=== PATIENT | female | born 1955 | race Two or more races ===

== ENCOUNTER → 2020-01-17 08:15 | Outpatient (BNVA) | payer MEDICARE, SELFPAY | PROVIDERS: Family Provider Nurse Practitioner; Visit Provider Nurse Practitioner | DX: E11.22 Type 2 diabetes mellitus with diabetic chronic kidney disease (principal); N18.9 Chronic kidney disease, unspecified; R82.998 Other abnormal findings in urine | CPT/HCPCS: 80053; 80061; 83036 ==

== ENCOUNTER → 2020-01-21 08:46 | Outpatient (BNVA) | payer MEDICARE, SELFPAY | PROVIDERS: Family Provider Nurse Practitioner; Visit Provider Nurse Practitioner | DX: E11.22 Type 2 diabetes mellitus with diabetic chronic kidney disease (principal); R39.11 Hesitancy of micturition; I10 Essential (primary) hypertension; M51.36 Other intervertebral disc degeneration, lumbar region; E78.5 Hyperlipidemia, unspecified; R82.998 Other abnormal findings in urine | CPT/HCPCS: 81003; 87086 ==

== ENCOUNTER → 2020-05-01 08:13 | Outpatient (BNVA) | payer MEDICARE, SELFPAY | PROVIDERS: Family Provider Nurse Practitioner; Visit Provider Nurse Practitioner | DX: E11.22 Type 2 diabetes mellitus with diabetic chronic kidney disease (principal); N18.9 Chronic kidney disease, unspecified; I12.9 Hypertensive chronic kidney disease with stage 1 through stage 4 chronic kidney disease, or unspecified chronic kidney disease; E78.5 Hyperlipidemia, unspecified | CPT/HCPCS: 80053; 80061; 83036 ==

== ENCOUNTER → 2020-08-06 08:09 | Outpatient (BNVA) | payer MEDICARE, SELFPAY | PROVIDERS: Family Provider Nurse Practitioner; Visit Provider Nurse Practitioner | DX: R53.83 Other fatigue (principal); E55.9 Vitamin D deficiency, unspecified; E11.22 Type 2 diabetes mellitus with diabetic chronic kidney disease; E78.5 Hyperlipidemia, unspecified; I12.9 Hypertensive chronic kidney disease with stage 1 through stage 4 chronic kidney disease, or unspecified chronic kidney disease; N18.9 Chronic kidney disease, unspecified | CPT/HCPCS: 80053; 80061; 83036 ==

== ENCOUNTER → 2020-08-12 09:40 | Outpatient (BNVA) | payer MEDICARE, SELFPAY | PROVIDERS: Family Provider Nurse Practitioner; Visit Provider Nurse Practitioner | DX: R53.83 Other fatigue (principal); E55.9 Vitamin D deficiency, unspecified | CPT/HCPCS: 82306; 82607; 84443; 85025 ==

== ENCOUNTER → 2020-08-31 10:27 | Outpatient (BNVA) | payer MEDICARE, SELFPAY | PROVIDERS: Family Provider Nurse Practitioner; Visit Provider Nurse Practitioner Family | DX: Z11.59 Encounter for screening for other viral diseases (principal) | CPT/HCPCS: 87635 ==

== ENCOUNTER 2020-09-25 06:54 | Outpatient (CLI) | payer MEDICARE, BC, SELFPAY ==
--- NOTE | 2020-09-25 07:15 | USCV_ITS ---
Kasey Vidal Age: 64 Gender: F : 1955 Exam Date: 09/25/2020 07:04 Ordering Phys: Liberty Patricia Technologist: Lesa Bautista [place] [facility] [place]: BRUIT ON RT Risk Factors: Unknown Previous Vascular Surgery: None Right Brachial BP: / Left Brachial BP: / Right Left Velocity (cm/s) Spectral Plaque Velocity (cm/s) Spectral Plaque Syst/Diast Broadening Syst/Diast Broadening 117.45/23.15 Prox CCA 133.30/ 55.90 108.10/32.00 Mid CCA 105.20/ 20.40 79.40/ 18.70 Distal CCA 106.90/ 27.20 Hetro 69.50/ 15.40 Prox ICA 49.00 / 12.00 Hetro 67.60/ 25.00 Mid ICA 60.50 / 18.80 60.30/ 16.60 Distal ICA 62.50 / 19.00 130.10 ECA 130.70 0.64 ICA/CCA 0.59 Antegrade Vertebral Antegrade 40.90/ 12.40 cm/s 22.80/ 5.20 cm/s Tri Subclavian Tri 184.9 140.6 0 0 FINDINGS Comparison: none available. No significant elevation of systolic or diastolic velocities. Waveforms are normal. Mixture of calcified and noncalcified plaque in the bifurcations. Bilateral antegrade vertebral arteries. CONCLUSIONS Bilateral ICA stenosis less than 50%. Mild carotid atherosclerosis. Dr. Abbi Oneil DO (Electronically Signed) Final Date: 25 September 2020 09:46 S
== END 2020-09-25 06:55 | disposition home or self-care (01) ==
LOC: US 06:55
PROVIDERS: PCP Nurse Practitioner; Visit Provider Nurse Practitioner
DX: R09.89 Other specified symptoms and signs involving the circulatory and respiratory systems (principal); I65.23 Occlusion and stenosis of bilateral carotid arteries
CPT/HCPCS: 93880

== ENCOUNTER → 2021-01-29 08:20 | Outpatient (BNVA) | payer MEDICARE, BC, SELFPAY | PROVIDERS: PCP Family Medicine; Visit Provider Family Medicine | DX: I10 Essential (primary) hypertension (principal); E78.5 Hyperlipidemia, unspecified; E11.9 Type 2 diabetes mellitus without complications; M79.645 Pain in left finger(s); R00.2 Palpitations | CPT/HCPCS: 80053; 80061; 81015; 82043; 85025 ==

== ENCOUNTER → 2021-02-02 07:43 | Outpatient (BNVA) | payer MEDICARE, BC, SELFPAY | PROVIDERS: PCP Family Medicine; Visit Provider Family Medicine | DX: E11.9 Type 2 diabetes mellitus without complications (principal); I10 Essential (primary) hypertension | CPT/HCPCS: 83036; 85025 ==

== ENCOUNTER 2021-02-06 15:01 | Outpatient (CLI) | payer MEDICARE, BC, SELFPAY ==
--- NOTE | 2021-02-06 15:45 | XR_ITS ---
WS: [id number] LEFT HAND: 3 VIEW(S) TECHNIQUE: PA, oblique and lateral. HISTORY: left thumb pain COMPARISON: None available. No acute fracture or dislocation. Mild osteoarthritis at the first CMC joint. Very minimal subluxation at the first metacarpal phalange al joint. No acute fractures. There is a healed fracture involving the radial metaphysis. Prior avuls ion fracture from the ulnar styloid. Mild diffuse interphalangeal joint space narrowing. No erosions. XR/XR hand LT min 3V* 05001 IMPRESSION: 1. Mild osteoarthritis throughout the hand and including the first CMC joint. 2. Osteopenia. 3. Healed fracture involving the distal radius.
== END 2021-02-06 15:02 | disposition home or self-care (01) ==
LOC: RADWPI 15:03
PROVIDERS: PCP Family Medicine; Visit Provider Family Medicine
DX: M19.042 Primary osteoarthritis, left hand (principal); M85.842 Other specified disorders of bone density and structure, left hand
CPT/HCPCS: 73130

== ENCOUNTER 2021-03-12 10:14 | Outpatient (CLI) | payer MEDICARE, BC, SELFPAY ==
[2021-03-12 10:45] LABS: Basophils % 0.9 %; Eosinophils # 0.1 10^3/uL (0.0-0.8); Hemoglobin 14.3 g/dL (11.5-15.3); Lymphocytes # 1.3 10^3/uL (0.8-4.8); Lymphocytes % 27.5 %; Mean Corpuscular HGB Conc 32.5 g/dL (30.0-36.0); Mean Corpuscular Hemoglobin 32.9 pg (28.0-34.0); Mean Corpuscular Volume 101.4 fL (81-99); Mean Platelet Volume 10.7 fL (7.4-10.4); Monocytes # 0.5 10^3/uL (0.2-0.9); Monocytes % 10.6 %; Neutrophils # 2.65 10^3/uL (1.8-7.7); Neutrophils % 57.6 %; Nucleated Red Blood Cells % 0 %; Platelet Count 86 10^3/cmm (130-400); Red Blood Count 4.34 10^6/uL (4.1-5.3); Red Cell Distribution Width 12.8 % (12.1-15.1); White Blood Count 4.6 10^3/uL (4.0-10.0)
--- NOTE | 2021-03-12 14:30 | ONC CON_ITS ---
Dr. Woods New Patient Note Patient: Kasey Vidal Unit #: [id number]: 1955 Dicatated By: Josh Woods M.D.Date of Visit: Mar 12, 2021 Onc MED New Patient/Consult Referring Physician: Dell Rodríguez N.P. History of Present Illness: Ms. Kasey Vidal, is a 65-year-old female with a history of mild progressive thrombocytopenia since 2016, as per patient initially her platelet count was around 120,000 and then dropped down 100,000 range and recently on February 02, 2021 her CBC showed platelet count 77,000 with a normal white blood count at 4.6, hemoglobin 13.5 hematocrit 42.4., Patient was referred to hematology clinic for evaluation for isolated mildly progressive thrombocytopenia. Patient denies any history of nosebleed or gum bleed, melena or hematochezia, dysuria or hematuria, or petechia or ecchymosis Patient denies any history of night sweats, recurrent fever, weight loss, peripheral lymphadenopathy or abdominal fullness., As per patient she was diagnosed with Covid infection in August 2020 but her symptoms were mild, did not require hospitalization. As far as past medical history is concerned, patient has history of hypertension, diabetes, peripheral neuropathy, sleep apnea, on CPAP, medication, she is on Metformin for many years, lisinopril for more than 5 years Trulicity was started about 2 years ago, duloxetine was started a year ago, prior to that she was on gabapentin for neuropathy. Patient denies alcohol use or smoking, Past Medical History: Ms. Vidal's medical history consists of anxiety, covid 19, depression, diabetes type II, hyperlipidemia, Insomnia, and obstructive sleep apnea. Past Surgical History: Ms. Vidal's surgical/procedural history consists of lumbar surgery in 2014 and hysterectomy in 1998 - one ovary removed. 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 Ms. Vidal has never smoked. She has no history of drinking. Family History: Ms. Vidal's mother at age 79: Heart disease at age 78. Ms. Vidal's father at age 80: Heart attack at age 80. Ms. Vidal has 2 brothers: 1 alive, 1 . Ms. Vidal's first brother's medical history includes renal disease, hypertension, and heart disease. Another brother's hepatitis c, and motor vehicle accident at age 44. She has 1 sister who is alive: medical history includes diabetes and Heart disease. She has 2 sons: 2 alive. Ms. Vidal's first son's medical history includes Paralysis, Bipolar, and traumatic brain injury. Review Of Symptoms: Review of Systems is not available for this patient. Vital Signs: Performed on Mar 12, 2021 11:10: 3, 0, 33.58 (HIGH), 1.91 sq.m, 63.50 in (HIGH), 97 %, 87 /min, 20 /min, 131/68 mm(hg), 98.5 F, and 192.6 lbs (HIGH). Performance Status: 0 - Fully active, able to carry on all predisease activities without restrictions. (ECOG) Physical Examination: ENMT - No mouth sores, no thrush, no jaundice, Respiratory - Lungs are clear to auscultation, Cardiovascular - Regular rate and rhythm of heart, Abdomen - Soft, bowel sounds present, Extremities - No edema or rash, no peripheral lymphadenopathy. Lab/Imaging: Most recent lab results are not available for this patient. Impression: Isolated progressive mild/moderate thrombocytopenia etiology unclear could be multifactorial including drug-induced e.g. Trulicity 25% incidence of thrombocytopenia reported within first 2 years of use, CHRIS inhibitor, duloxetine can cause but uncommon. Or low-grade ITP or underlying myelodysplasia but less likely. Diabetes mellitus Hypertension DJD^ Sleep apnea on CPAP machine] Plan: Discussed with patient regarding her labs white blood count 4.6 hemoglobin 14.3 hematocrit 44 platelets 86,000 with a normal differential Clinically, patient doing well with no signs symptom suggestive of gross bleeding, her follow-up CBC shows hemoglobin in normal range, white blood count also normal range but persistent but stable isolated thrombocytopenia, etiology could be multifactorial including but not limited to drug-induced, especially Trulicity which was started about 2 years ago and as per patient her platelet count has been going down in the last couple of years, other possibility could be other drugs like lisinopril duloxetine, but less likely or she may have underlying low-grade ITP moreover patient was exposed to coronavirus although she had mild symptom, may have developed low-grade ITP. Other possibility could be platelet clumping due to EDTA in the sample collecting tube. Or splenomegaly We will review peripheral blood smear to rule out clumping or other abnormalities. And also consider abdominal sonogram to rule out splenomegaly and patient return to clinic in 2 weeks with CBC if she has persistent or progressive thrombocytopenia and above-mentioned work-up shows no abnormality, we will consider ruling out drug-induced thrombocytopenia by holding each drug separately and will start with Trulicity. And if her thrombocytopenia persist or progressed, will consider bone marrow evaluation. Signed By: Josh Woods M.D. <<Signature on File>>
[2021-03-12 21:07] LABS: LAB Peripheral Smear Sent for Review
== END 2021-03-12 10:15 | disposition home or self-care (01) ==
PROVIDERS: PCP Family Medicine; Visit Provider Internal Medicine Hematology & Oncology
DX: D69.6 Thrombocytopenia, unspecified (principal); E11.9 Type 2 diabetes mellitus without complications; I10 Essential (primary) hypertension; M19.90 Unspecified osteoarthritis, unspecified site; G47.33 Obstructive sleep apnea (adult) (pediatric); Z79.899 Other long term (current) drug therapy
CPT/HCPCS: 36415; 80500; 85025; 99204

== ENCOUNTER 2021-03-18 06:49 | Outpatient (CLI) | payer MEDICARE, BC, SELFPAY ==
--- NOTE | 2021-03-18 07:03 | US_ITS ---
WS: [id number] ULTRASOUND ABDOMEN LIMITED CLINICAL INFORMATION: THROMBOCYTOPENIA COMPARISON: None. FINDINGS: Spleen size upper limits of normal Craniocaudal length: 11.2 cm. Transverse length 5.7 cm AP dimension 5.2 cm US/US abdomen limited 36403 IMPRESSION: 1. Spleen measures 11.2 x 5.7 x 5.2 cm upper limits of normal. 2. Incidental splenic granulomas.
== END 2021-03-18 06:50 | disposition home or self-care (01) ==
LOC: US 06:50
PROVIDERS: PCP Family Medicine; Visit Provider Internal Medicine Hematology & Oncology
DX: D69.6 Thrombocytopenia, unspecified (principal); L92.8 Other granulomatous disorders of the skin and subcutaneous tissue
CPT/HCPCS: 76705

== ENCOUNTER 2021-04-02 11:44 | Outpatient (CLI) | payer MEDICARE, BC, SELFPAY ==
[2021-04-02 12:23] LABS: Basophils # 0.1 10^3/uL (0.0-0.1); Basophils % 1.5 %; Eosinophils # 0.1 10^3/uL (0.0-0.8); Eosinophils % 3.6 %; Hemoglobin 13.3 g/dL (11.5-15.3); Lymphocytes # 1.2 10^3/uL (0.8-4.8); Lymphocytes % 30.4 %; Mean Corpuscular HGB Conc 32.4 g/dL (30.0-36.0); Mean Corpuscular Hemoglobin 32.8 pg (28.0-34.0); Mean Corpuscular Volume 101.2 fL (81-99); Mean Platelet Volume 10.9 fL (7.4-10.4); Monocytes # 0.4 10^3/uL (0.2-0.9); Monocytes % 10.5 %; Neutrophils # 2.11 10^3/uL (1.8-7.7); Nucleated Red Blood Cells % 0 %; Platelet Count 75 10^3/cmm (130-400); Red Blood Count 4.05 10^6/uL (4.1-5.3); Red Cell Distribution Width 12.7 % (12.1-15.1); White Blood Count 3.9 10^3/uL (4.0-10.0)
--- NOTE | 2021-04-03 08:09 | ONC FU_ITS ---
Dr. Woods follow up note Patient: Kasey Vidal Unit #: [id number]: 1955 Dicatated By: Josh Woods M.D.Date of Visit:April 02, 2021 Onc Med Follow-up/Prog Note History of Present Illness: Ms. Kasey Vidal, is a 65-year-old female with a history of mild progressive thrombocytopenia since 2016, as per patient initially her platelet count was around 120,000 and then dropped down 100,000 range and recently on February 02, 2021 her CBC showed platelet count 77,000 with a normal white blood count at 4.6, hemoglobin 13.5 hematocrit 42.4., Patient was referred to hematology clinic for evaluation for isolated mildly progressive thrombocytopenia. Patient denies any history of nosebleed or gum bleed, melena or hematochezia, dysuria or hematuria, or petechia or ecchymosis Patient denies any history of night sweats, recurrent fever, weight loss, peripheral lymphadenopathy or abdominal fullness., As per patient she was diagnosed with Covid infection in August 2020 but her symptoms were mild, did not require hospitalization. As far as past medical history is concerned, patient has history of hypertension, diabetes, peripheral neuropathy, sleep apnea, on CPAP, medication, she is on Metformin for many years, lisinopril for more than 5 years Trulicity was started about 2 years ago, duloxetine was started a year ago, prior to that she was on gabapentin for neuropathy. Patient denies alcohol use or smoking, Abdominal sonogram done on March 18, 2021 shows spleen size measured 11.2 x 5.7 x 5.2 cm and incidental splenic granulomas. Came for follow-up, denies any specific complaints, no fever chills, no nausea or vomiting, no diarrhea constipation, no melena or hematochezia, no hemoptysis or hematemesis, no petechia or ecchymosis Medications: Atorvastatin Calcium 20 mg - Take 1 Tablet Oral at bedtime, Benadryl 25 mg - Take 2 Capsule Oral q 4 hours PRN, DULoxetine HCl 1 Caplet (of 30 mg) Capsule Delayed Release Particles Oral daily, Lisinopril 1 (10 mg) Tablet Oral daily, Melatonin 10 mg - Take 1 Capsule Oral at bedtime PRN, MetFORMIN HCl 500 mg - Take 2 Tablet Oral b.i.d., Tamsulosin HCl 1 Caplet (of 0.4 mg) Capsule Oral daily, traMADol HCl 1 Tablet (of 50 mg) Oral q 6 hours PRN, Trulicity 1 Each (of 1.5 mg/0.5mL) Subcutaneous q 7 days Allergies: Ibuprofen Review of Systems: Review of Systems is not available for this patient. Vital Signs: Performed on April 02, 2021 14:42 Height - 63.50 in Weight - 183.2 lbs (LOW) BSA - 1.87 sq.m BMI - 31.94 (HIGH) Temperature - 97.0 F (LOW) Pulse - 86 /min Respiration - 18 /min BP - 147/73 mm(hg) (HIGH) O2 Sat - 96 % Pain - 0 Fatigue - 4 Performance Status: 0 - Fully active, able to carry on all predisease activities without restrictions. (ECOG) Physical Examination: ENMT - No mouth sores, no thrush, no jaundice, no cervical or axillary lymphadenopathy, Respiratory - Lungs are clear to auscultation, Cardiovascular - Regular rate and rhythm of heart, Abdomen - Soft, bowel sounds present, no organomegaly, Extremities - No visible edema rash or cyanosis. Lab/Imaging: Most recent lab results are not available for this patient. Impression: Isolated progressive mild/moderate thrombocytopenia etiology unclear could be multifactorial including drug-induced e.g. Trulicity 25% incidence of thrombocytopenia reported within first 2 years of use, CHRIS inhibitor, duloxetine can cause but uncommon. Or low-grade ITP or underlying myelodysplasia but less likely. Abdominal sonogram done on March 18, 2021 shows no splenomegaly Diabetes mellitus Hypertension DJD Plan: Discussed with patient regarding her labs white blood count 3.9 compared to 4600 on March 12, 2021 hemoglobin 13.3 hematocrit 41 platelets 75,000 compared to 86,000 previously Clinically, patient doing well with no signs symptom suggestive of gross bleeding, her hemoglobin is stable, her platelet count shows persistent mild/moderate thrombocytopenia but stable repeat CBC shows mild leukopenia, her abdominal sonogram shows no splenomegaly and peripheral blood smear showed normal white blood cell count and morphology RBCs show slight macrocytosis and thrombocytopenia but no abnormal cells seen. At this point, her persistent moderate thrombocytopenia and fluctuating leukopenia could be due to medications like Trulicity or lisinopril. So we will hold Trulicity for 2 weeks and then she will return to clinic in 2 weeks with CBC, if there is no improvement in her platelet count, then will restart Trulicity again and then hold lisinopril to see if she has drug-induced thrombocytopenia or fluctuating leukopenia, if there is no improvement, will consider bone marrow evaluation to rule out underlying myelodysplasia or other pathology Signed By: Josh Woods M.D. <<Signature on File>>
== END 2021-04-02 11:45 | disposition home or self-care (01) ==
PROVIDERS: PCP Family Medicine; Visit Provider Internal Medicine Hematology & Oncology
DX: D69.6 Thrombocytopenia, unspecified (principal); R16.1 Splenomegaly, not elsewhere classified; E11.9 Type 2 diabetes mellitus without complications; I10 Essential (primary) hypertension; M19.90 Unspecified osteoarthritis, unspecified site; Z79.899 Other long term (current) drug therapy
CPT/HCPCS: 36415; 85025; 99214

== ENCOUNTER 2021-04-16 05:53 | Outpatient (CLI) | payer MEDICARE, BC, SELFPAY ==
[2021-04-16 09:59] LABS: Basophils # 0.1 10^3/uL (0.0-0.1); Basophils % 1.5 %; Eosinophils # 0.2 10^3/uL (0.0-0.8); Eosinophils % 4.7 %; Hematocrit 40.4 % (37.0-47.0); Hemoglobin 13.1 g/dL (11.5-15.3); Lymphocytes # 1.1 10^3/uL (0.8-4.8); Lymphocytes % 27.1 %; Mean Corpuscular HGB Conc 32.4 g/dL (30.0-36.0); Mean Corpuscular Hemoglobin 32.9 pg (28.0-34.0); Mean Corpuscular Volume 101.5 fL (81-99); Mean Platelet Volume 11.3 fL (7.4-10.4); Monocytes # 0.4 10^3/uL (0.2-0.9); Monocytes % 10.8 %; Neutrophils # 2.25 10^3/uL (1.8-7.7); Neutrophils % 55.4 %; Nucleated Red Blood Cells % 0 %; Platelet Count 75 10^3/cmm (130-400); Red Blood Count 3.98 10^6/uL (4.1-5.3); Red Cell Distribution Width 12.8 % (12.1-15.1); White Blood Count 4.1 10^3/uL (4.0-10.0)
--- NOTE | 2021-04-17 08:05 | ONC FU_ITS ---
Dr. Woods follow up note Patient: Kasey Vidal Unit #: [id number]: 1955 Dicatated By: Josh Woods M.D.Date of Visit:April 16, 2021 Onc Med Follow-up/Prog Note History of Present Illness: Ms. Kasey Vidal, is a 65-year-old female with a history of mild progressive thrombocytopenia since 2016, as per patient initially her platelet count was around 120,000 and then dropped down 100,000 range and recently on February 02, 2021 her CBC showed platelet count 77,000 with a normal white blood count at 4.6, hemoglobin 13.5 hematocrit 42.4., Patient was referred to hematology clinic for evaluation for isolated mildly progressive thrombocytopenia. Patient denies any history of nosebleed or gum bleed, melena or hematochezia, dysuria or hematuria, or petechia or ecchymosis Patient denies any history of night sweats, recurrent fever, weight loss, peripheral lymphadenopathy or abdominal fullness., As per patient she was diagnosed with Covid infection in August 2020 but her symptoms were mild, did not require hospitalization. As far as past medical history is concerned, patient has history of hypertension, diabetes, peripheral neuropathy, sleep apnea, on CPAP, medication, she is on Metformin for many years, lisinopril for more than 5 years Trulicity was started about 2 years ago, duloxetine was started a year ago, prior to that she was on gabapentin for neuropathy. Patient denies alcohol use or smoking, Abdominal sonogram done on March 18, 2021 shows spleen size measured 11.2 x 5.7 x 5.2 cm and incidental splenic granulomas. Came for follow-up, denies any specific complaints, no fever chills, no nausea or vomiting, no diarrhea or constipation, no melena or hematochezia, no petechia or ecchymosis, no nosebleed or gum bleed. Patient says she did not take Trulicity for the last 2 weeks to see if it improves her platelet count Medications: Atorvastatin Calcium 20 mg - Take 1 Tablet Oral at bedtime, Benadryl 25 mg - Take 2 Capsule Oral q 4 hours PRN, DULoxetine HCl 1 Caplet (of 30 mg) Capsule Delayed Release Particles Oral daily, Lisinopril 1 (10 mg) Tablet Oral daily, Melatonin 10 mg - Take 1 Capsule Oral at bedtime PRN, MetFORMIN HCl 500 mg - Take 2 Tablet Oral b.i.d., Tamsulosin HCl 1 Caplet (of 0.4 mg) Capsule Oral daily, traMADol HCl 1 Tablet (of 50 mg) Oral q 6 hours PRN Allergies: Ibuprofen Review of Systems: Review of Systems is not available for this patient. Vital Signs: Performed on April 16, 2021 11:45 Height - 63.50 in Weight - 195.6 lbs (HIGH) BSA - 1.93 sq.m BMI - 34.11 (HIGH) Temperature - 97.0 F (LOW) Pulse - 78 /min Respiration - 18 /min BP - 144/69 mm(hg) (HIGH) O2 Sat - 96 % Pain - 0 Fatigue - 7 Performance Status: 0 - Fully active, able to carry on all predisease activities without restrictions. (ECOG) Physical Examination: ENMT - No mouth sores, no thrush, no jaundice, no cervical lymphadenopathy, Respiratory - Lungs are clear to auscultation, Cardiovascular - Regular rate and rhythm of heart, Abdomen - Soft, bowel sounds present, Extremities - No visible edema. Lab/Imaging: Most recent lab results are not available for this patient. Impression: Isolated progressive mild/moderate thrombocytopenia etiology unclear could be multifactorial including drug-induced e.g. Trulicity 25% incidence of thrombocytopenia reported within first 2 years of use, CHRIS inhibitor, duloxetine can cause but uncommon. Or low-grade ITP or underlying myelodysplasia but less likely. Abdominal sonogram done on March 18, 2021 shows no splenomegaly Diabetes mellitus Hypertension DJD Plan: Discussed with patient regarding her labs white blood count 4.1 compared to 3.9 previously hemoglobin 13.1 hematocrit 40.4 platelets 75,000 compared to 75,000 previously Clinically, patient doing well with no signs symptom suggestive of bleeding, her follow-up CBC shows resolution of mild leukopenia but persistent moderate thrombocytopenia but stable, patient was advised to hold Trulicity to see if that may be causing persistent moderate thrombocytopenia but there is no improvement, at this point, will consider bone marrow evaluation, patient will return to clinic 10 days after bone marrow with CBC, for further discussion, Patient was advised to restart Trulicity as was recommended by PMD Signed By: Josh Woods M.D. <<Signature on File>>
== END 2021-04-16 05:54 | disposition home or self-care (01) ==
LOC: ONCMED 05:56
PROVIDERS: PCP Family Medicine; Visit Provider Internal Medicine Hematology & Oncology
DX: D69.6 Thrombocytopenia, unspecified (principal); E11.9 Type 2 diabetes mellitus without complications; I10 Essential (primary) hypertension; M19.90 Unspecified osteoarthritis, unspecified site; Z79.899 Other long term (current) drug therapy; Z79.84 Long term (current) use of oral hypoglycemic drugs
CPT/HCPCS: 36415; 85025; 99214

== ENCOUNTER → 2021-05-15 10:38 | Outpatient (BNVA) | payer MEDICARE, BC, SELFPAY | PROVIDERS: PCP Family Medicine; Visit Provider Internal Medicine Hematology & Oncology | DX: Z01.812 Encounter for preprocedural laboratory examination (principal); Z20.822 Contact with and (suspected) exposure to COVID-19 | CPT/HCPCS: 87635 ==

== ENCOUNTER 2021-05-19 09:26 | Day surgery (SDC) | payer MEDICARE, BC, SELFPAY ==
[2021-05-18 09:12] VITALS: BMI 32.5
[2021-05-19 09:53] VITALS: BP 112/65; PULSE 67; RESP 16; TEMP 36.5; O2SAT 98
[2021-05-19 10:09] LABS: Glucose Point of Care 131 mg/dL (70-110)
[2021-05-19] MEDS: sodium chloride 0.9% 1,000 ML 30 ML IV (10:24)
--- NOTE | 2021-05-19 10:24 | P.ANESASSM_ITS ---
Pre-Anesthetic Assessment Pre-Anesthetic Assessment: Height/Weight: Height 1.61 m Weight 84.822 kg Temp Pulse Resp BP Pulse Ox 97.7 F 67 16 112/65 98 05/19/21 09:53 05/19/21 09:53 05/19/21 09:53 05/19/21 09:53 05/19/21 09:53 Proposed Procedure: Operation Date: 05/19/21 11:00 Proposed Procedures p Bone Marrow Biospy With Aspiration(Not Applicable) - Josh Woods MD Familial anesthetic complications: ponv Was Beta Dori taken within 24 hours: Yes Was Clonidine taken within 24 hours: N/A Last intake: Intake Last Liquid Date 05/18/21 Last Liquid Time 19:00 Last Solid Date 05/18/21 Last Solid Time 19:00 Last Intake: 19:00 Social: Social History: No alcohol and No tobacco Exam: Pre-Anes Outpt Exam: alert and oriented x 3 Airway: Submandibular: WNL Cervical ROM: WNL MP: 2 Dentition: Partials Pulmonary: Pulmonary: Sleep apnea Comments: cpap CV/HEM: CV/HEM: Angina (Stable) and HTN Comments: currently being worked up for hx a flutter or svt has chest pressure occasionally, last was a few months ago mets <4, lightheaded and sob with exertion : : None reported Hepatic: Comments: fatty liver GI: GI: GERD Comments: gerd well controlled Metabolic: Metabolic: DM Musc/skel: Musc/skel: OA/DJD Comments: osteoporosis Neuropsych: Neuropsych: None reported Anesthetic Plan: ASA status: 4 Anesthesia: MAC Risk of > 500 ml blood loss (7ml/kg in children): No PFSH Anesthesia PFSH: Medical History Anxiety with depression DDD (degenerative disc disease), lumbar Dyslipidemia Essential (primary) hypertension Hesitancy of micturition History of 2019 novel coronavirus disease (COVID-19) Obstructive sleep apnea Type 2 diabetes mellitus, without long-term current use of insulin Surgical History History of hysterectomy with unilateral oophorectomy 1998 History of lumbar surgery Dr. Blair 2014 Family History Other Diabetes Heart disease Osteoporosis Social History Smoking and tobacco status: never smoked Second hand smoke exposure: No Smoking risk assessment/counseling performed?: No Alcohol intake: never Desire information about alcohol rehabilitation?: No Counseling given: No Desire information about substance/drug rehabilitation?: No Counseling given: No Adopted: No Caregiver/support person: No Lives independently: Yes Housing: House Marital status: / Number of children: 2 service: No Current occupational status: employed Current occupation: [employer] History of recent travel: No Current gender identity: Female Data Anesthesia CBC & Chem 7: 05/19/21 10:20 Other Labs: Laboratory Results - last 48 hr 05/19/21 10:04 POC Glucose 131 H Cardiac Studies: Cardiac Event Monitor 02/11/21
[2021-05-19 10:32] LABS: Basophils # 0.1 10^3/uL (0.0-0.1); Basophils % 1.3 %; Eosinophils # 0.2 10^3/uL (0.0-0.8); Eosinophils % 3.1 %; Hematocrit 47.1 % (37.0-47.0); Hemoglobin 15.1 g/dL (11.5-15.3); Mean Corpuscular HGB Conc 32.1 g/dL (30.0-36.0); Mean Corpuscular Hemoglobin 33.4 pg (28.0-34.0); Mean Corpuscular Volume 104.2 fL (81-99); Monocytes # 0.9 10^3/uL (0.2-0.9); Monocytes % 13.5 %; Neutrophils # 3.17 10^3/uL (1.8-7.7); Neutrophils % 49.8 %; Nucleated Red Blood Cells % 0 %; Platelet Count 85 10^3/cmm (130-400); Red Blood Count 4.52 10^6/uL (4.1-5.3); Red Cell Distribution Width 13.2 % (12.1-15.1); White Blood Count 6.4 10^3/uL (4.0-10.0)
[2021-05-19 10:45] LABS: Slide Review Slide Review Perform
--- NOTE | 2021-05-19 11:31 | P.PCN_ITS ---
Bone Marrow Biopsy Bone Marrow Biopsy: I was consulted by [] office regarding bone marrow biopsy on [Kasye Vidal]. Briefly, the patient is a [65] year old [female] with [thrombocytopenia]. In the Outpatient Services Department, with nursing staff and laboratory technologists in attendance, the procedure was discussed with the patient. Appropriate consent form had been signed. Appropriate alternatives, benefits and risks of procedure were discussed with the patient and she was pre- operatively assessed with a history and physical by myself and cleared for the biopsy procedure. The patient did request IV sedation and that was provided by the Anesthesia Department., Under aseptic condition right posterior iliac area was cleaned and prepped local anesthesia was given and about 15 cc of bone marrow aspirate and core biopsy was obtained, patient tolerated procedure well, hemostasis obtained, specimen was sent for routine histopathology, flow cytometry, cytogenetics and FISH for MDS. Postprocedure nursing instructions were given Thank you for allowing me to participate in this patient's care and diagnosis. Coding Level of Care Code Acute Health Support Specialist for Ric Yun
[2021-05-19 11:37] VITALS: BP 110/61; PULSE 69; RESP 18; TEMP 36.2; O2SAT 94
[2021-05-19 12:16] VITALS: BP 118/62; PULSE 68; RESP 18; O2SAT 94
--- NOTE | 2021-05-19 15:51 | ANE.PACU2 ---
Inpatient post-anesthesia follow up: Airway intact: Yes Vital signs: Temperature 97.2 F Pulse Rate 68 Respiratory Rate 18 Blood Pressure 118/62 Pulse Oximetry 94 Oxygen Delivery Me thod Room Air Oxygen Flow Rate Fraction of Inspir ed Oxygen Hydration adequate: Yes Nausea and vomiting: No Pain level: 2 Mental status: Baseline
[2021-05-21 10:58] LABS: Miscellaneous Test See Scanned Lab Rpt
[2021-05-27 07:20] LABS: Miscellaneous Test See Scanned Lab Rpt
== END 2021-05-19 12:19 | disposition home or self-care (01) ==
PROVIDERS: PCP Family Medicine; Visit Provider Internal Medicine Hematology & Oncology
PROC: 07DT3ZX Extraction of Bone Marrow, Percutaneous Approach, Diagnostic (ICD-10-PCS; CPT 38222; principal; 2021-05-19 11:00)
DX: D69.6 Thrombocytopenia, unspecified (principal); G47.30 Sleep apnea, unspecified; I10 Essential (primary) hypertension; K21.9 Gastro-esophageal reflux disease without esophagitis; M19.90 Unspecified osteoarthritis, unspecified site; E11.9 Type 2 diabetes mellitus without complications; E78.5 Hyperlipidemia, unspecified; Z86.16 Personal history of COVID-19; G47.33 Obstructive sleep apnea (adult) (pediatric)
CPT/HCPCS: 36415; 36416; 38222; 82962; 85025; 88184; 88185; 88237; 88264; 88305; 88374; 96360; J2370; J2704; J7030

== ENCOUNTER 2021-06-10 09:35 | Outpatient (CLI) | payer MEDICARE, BC, SELFPAY ==
--- NOTE | 2021-06-10 10:15 | USCV_ITS ---
Kasey Vidal Age: 65 Gender: F : 1955 Exam Date: 06/10/2021 09:50 Ordering Phys: Luzmaria Slaughter MD ([email or web address]) Technologist: Exam Location: [facility] [place]ication: Chest pain BP: 130 / 75 HR: 69 Rhythm: Sinus Technical Quality: Adequate MEASUREMENTS (Male / Female) Normal Values 2D ECHO LV Diastolic Diameter PLAX 3.7 cm 4.2 - 5.9 / 3.9 - 5.3 cm LV Systolic Diameter PLAX 2.0 cm IVS Diastolic Thickness 1.0 cm 0.6 - 1.0 / 0.6 - 0.9 cm IVS Systolic Thickness 1.3 cm LVPW Diastolic Thickness 1.0 cm 0.6 - 1.0 / 0.6 - 0.9 cm LVPW Systolic Thickness 1.2 cm LVOT Diameter 2.0 cm LV Ejection Fraction 2D Teich 77.9 % LV Ejection Fraction MOD 2C 72.9 % LV Ejection Fraction 2C AL 72.6 % LA Diameter 2.7 cm LA Width 3.2 cm LA Height 4.1 cm RA Width 3.0 cm RA Height 4.6 cm Aorta at Sinotubular Diameter 2.4 cm DOPPLER AV Peak Velocity 126.0 cm/s LVOT Peak Velocity 108.0 cm/s AV Area Cont Eq vti 2.6 cm squared AV Area Cont Eq pk 2.8 cm squared MV Area PHT 5.0 cm squared Mitral E to A Ratio 1.0 MV E' Velocity 54.0 cm/s Mitral E to MV E' Ratio 9.8 Mitral E to LV E' Lateral Ratio 9.9 Mitral E to LV E' Septal Ratio 9.7 TR Peak Velocity 198.0 cm/s TR Peak Gradient 15.7 mmHg TV Peak E Velocity 139.0 cm/s Right Atrial Pressure 3.0 mmHg Pulmonary Artery Systolic Pressu 18.7 mmHg FINDINGS Left Ventricle Normal left ventricular size, systolic function and wall thickness, with no regional wall motion abnormalities. Left ventricular ejection fraction is estimated at 65-70 %. Normal diastolic function. Right Ventricle Normal right ventricular size and systolic function. Right ventricular systolic pressure 18.7 mmHg. Right Atrium Normal right atrial size. Left Atrium Normal left atrial size. Mitral Valve Mild mitral annular calcification. Mildly thickened mitral valve. No mitral valve stenosis. Trace mitral valve regurgitation. Aortic Valve Structurally normal trileaflet aortic valve. No aortic valve stenosis. No aortic valve regurgitation. Tricuspid Valve Structurally normal tricuspid valve. No tricuspid valve stenosis. Trace to mild tricuspid valve regurgitation. Pulmonic Valve Pulmonic valve not well visualized. No pulmonary valve stenosis. Pericardium No pericardial effusion. Aorta Normal size aortic root and proximal ascending aorta. CONCLUSIONS 1 Normal left ventricular size, systolic function and wall thickness, with no regional wall motion abnormalities. Left ventricular ejection fraction is estimated at 65-70 %. Normal diastolic function. 2. Normal right ventricular size and systolic function. 3. Normal pulmonary artery pressure. 4. No significant valvular abnormality. 5. No prior similar studies to compare. Luzmaria Slaughter MD (Electronically Signed) Final Date: 12 June 2021 12:43 S
== END 2021-06-10 09:36 | disposition home or self-care (01) ==
PROVIDERS: PCP Family Medicine; Visit Provider Internal Medicine Cardiovascular Disease
DX: I48.92 Unspecified atrial flutter (principal); R07.9 Chest pain, unspecified
CPT/HCPCS: 93306

== ENCOUNTER 2021-06-19 07:49 | Outpatient (CLI) | payer MEDICARE, BC, SELFPAY ==
[2021-06-19 08:48] LABS: Basophils # 0.1 10^3/uL (0.0-0.1); Basophils % 1.1 %; Eosinophils # 0.1 10^3/uL (0.0-0.8); Eosinophils % 2.4 %; Hematocrit 44.4 % (37.0-47.0); Hemoglobin 14.1 g/dL (11.5-15.3); Lymphocytes # 1.5 10^3/uL (0.8-4.8); Lymphocytes % 28.8 %; Mean Corpuscular HGB Conc 31.8 g/dL (30.0-36.0); Mean Corpuscular Hemoglobin 33.1 pg (28.0-34.0); Mean Corpuscular Volume 104.2 fL (81-99); Mean Platelet Volume 11.3 fL (7.4-10.4); Monocytes # 0.7 10^3/uL (0.2-0.9); Monocytes % 13.6 %; Neutrophils # 2.86 10^3/uL (1.8-7.7); Neutrophils % 53.9 %; Nucleated Red Blood Cells % 0 %; Platelet Count 84 10^3/cmm (130-400); Red Blood Count 4.26 10^6/uL (4.1-5.3); Red Cell Distribution Width 13.1 % (12.1-15.1); White Blood Count 5.3 10^3/uL (4.0-10.0)
--- NOTE | 2021-06-19 12:49 | ONC FU_ITS ---
Dr. Woods follow up note Patient: Kasey Vidal Unit #: [id number]: 1955 Dicatated By: Josh Woods M.D.Date of Visit:Jun 19, 2021 Onc Med Follow-up/Prog Note History of Present Illness: Ms. Kasey Vidal, is a 65-year-old female with a history of mild progressive thrombocytopenia since 2016, as per patient initially her platelet count was around 120,000 and then dropped down 100,000 range and recently on February 02, 2021 her CBC showed platelet count 77,000 with a normal white blood count at 4.6, hemoglobin 13.5 hematocrit 42.4., Patient was referred to hematology clinic for evaluation for isolated mildly progressive thrombocytopenia. Patient denies any history of nosebleed or gum bleed, melena or hematochezia, dysuria or hematuria, or petechia or ecchymosis Patient denies any history of night sweats, recurrent fever, weight loss, peripheral lymphadenopathy or abdominal fullness., As per patient she was diagnosed with Covid infection in August 2020 but her symptoms were mild, did not require hospitalization. As far as past medical history is concerned, patient has history of hypertension, diabetes, peripheral neuropathy, sleep apnea, on CPAP, medication, she is on Metformin for many years, lisinopril for more than 5 years Trulicity was started about 2 years ago, duloxetine was started a year ago, prior to that she was on gabapentin for neuropathy. Patient denies alcohol use or smoking, Abdominal sonogram done on March 18, 2021 shows spleen size measured 11.2 x 5.7 x 5.2 cm and incidental splenic granulomas. Bone marrow evaluation done on May 19, 2021 showed normocellular bone marrow for age, adequate megakaryopoiesis, no overt dyspoietic or megaloblastic changes seen no blast increased. No significant reticulin fibrosis On peripheral blood smear no platelet clumping seen mild to moderate thrombocytopenia with minimal platelet anisocytosis. FISH for CML was negative FISH for myeloma was negative Came for follow-up, denies any specific complaints, no nosebleed no gum bleed no petechia no ecchymosis no melena or hematochezia, as per patient during her last visit with her cardiology for history of paroxysmal a flutter and strong family history of thromboembolism, her assistant broker Dr. Slaughter recommended anticoagulation. Her heart rate and rhythm is being controlled medically, now in sinus rhythm. Patient denies any night sweats denies any drenching sweating denies any recurrent fever denies any peripheral lymphadenopathy or abdominal fullness Medications: Atorvastatin Calcium 20 mg - Take 1 Tablet Oral at bedtime, Benadryl 25 mg - Take 2 Capsule Oral q 4 hours PRN, DULoxetine HCl 1 Caplet (of 30 mg) Capsule Delayed Release Particles Oral daily, Lisinopril 1 (10 mg) Tablet Oral daily, Melatonin 10 mg - Take 1 Capsule Oral at bedtime PRN, MetFORMIN HCl 500 mg - Take 2 Tablet Oral b.i.d., Tamsulosin HCl 1 Caplet (of 0.4 mg) Capsule Oral daily, traMADol HCl 1 Tablet (of 50 mg) Oral q 6 hours PRN Allergies: Ibuprofen Review of Systems: Review of Systems is not available for this patient. Vital Signs: Performed on Jun 19, 2021 10:52 Height - 63.50 in Weight - 190.2 lbs (LOW) BSA - 1.90 sq.m BMI - 33.16 (HIGH) Temperature - 98.1 F (LOW) Pulse - 73 /min Respiration - 18 /min BP - 88/43 mm(hg) (LOW) O2 Sat - 94 % (LOW) Pain - 0 Fatigue - 0 Performance Status: 0 - Fully active, able to carry on all predisease activities without restrictions. (ECOG) Physical Examination: ENMT - No mouth sores, no thrush, no jaundice, Respiratory - Lungs are clear to auscultation, Cardiovascular - Regular rate and rhythm of heart, Abdomen - Soft, bowel sounds present, Extremities - No visible edema or petechia. Lab/Imaging: Most recent lab results are not available for this patient. Impression: Isolated progressive mild/moderate thrombocytopenia etiology unclear could be multifactorial including drug-induced e.g. Trulicity 25% incidence of thrombocytopenia reported within first 2 years of use, CHRIS inhibitor, duloxetine can cause but uncommon. Or low-grade ITP As bone marrow evaluation was done on May 19, 2021, reported on June 08, 2021 showed normocellular bone marrow for age, adequate megakaryopoiesis, no overt dyspoietic or megaloblastic changes seen. Blasts are not increased. And peripheral blood smear showed no significant platelet clumping, mild to moderate thrombocytopenia with minimal platelet anisocytosis Abdominal sonogram done on March 18, 2021 shows no splenomegaly Paroxysmal atrial flutter or being managed medically Diabetes mellitus Hypertension DJD Plan: Discussed with patient regarding her labs white blood count 5.3 hemoglobin 14.1 hematocrit 44.4 platelets 84,000 compared to 75,000 previously and her bone marrow evaluation showed no evidence of myelodysplasia or myeloproliferative disorder and adequate megakaryocyopoiesis Clinically, patient is doing well with no signs symptoms suggestive of gross bleeding, no petechia or ecchymosis on exam her follow-up CBC shows persistent mild/moderate thrombocytopenia but stable her bone marrow evaluation showed no evidence of myelodysplasia and adequate megakaryocytes thus her thrombocytopenia is most likely due to peripheral destruction 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 As per patient, because of history of paroxysmal atrial flutter, her assistant broker Dr. Slaughter has recommended anticoagulation, patient also has a strong family history of thromboembolism., Anticoagulation can be considered while monitoring her platelet count, as long as platelet count is more than 50,000 and no evidence of gross bleeding. 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 Patient was advised to call us in case there is evidence of gross bleeding, petechiae or ecchymosis or nosebleed or any other sign of bleeding, otherwise we will see her back in 2 months with CBC Signed By: Josh Woods M.D. <<Signature on File>>
== END 2021-06-19 07:50 | disposition home or self-care (01) ==
LOC: ONCMED 07:52
PROVIDERS: PCP Family Medicine; Visit Provider Internal Medicine Hematology & Oncology
DX: D69.6 Thrombocytopenia, unspecified (principal); E11.8 Type 2 diabetes mellitus with unspecified complications; I10 Essential (primary) hypertension; M13.80 Other specified arthritis, unspecified site; Z79.899 Other long term (current) drug therapy
CPT/HCPCS: 36415; 85025; 99214

== ENCOUNTER → 2021-07-08 15:23 | Outpatient (BNVA) | payer MEDICARE, BC, SELFPAY | PROVIDERS: PCP Family Medicine; Visit Provider Internal Medicine Cardiovascular Disease | DX: D69.6 Thrombocytopenia, unspecified (principal); I48.92 Unspecified atrial flutter; R00.2 Palpitations | CPT/HCPCS: 85025 ==

== ENCOUNTER 2021-07-21 17:18 | Emergency (ER) | payer MEDICARE, BC, SELFPAY ==
[2021-07-21 17:48] VITALS: BP 137/78; PULSE 79; RESP 18; TEMP 36.7; O2SAT 94
--- NOTE | 2021-07-21 17:57 | ED_ITS ---
HPI - Eye Problem General: Chief complaint: Eye Problems Stated complaint: R EYE PAIN, SWELLING, ITCHING Time Seen by Provider: 07/21/21 17:57 History of Present Illness: HPI Narrative: Patient comes in today with swelling to the right eye. Patient reports about 2 hours ago she felt something go into her eye and she had rubbed. She reports the foreign body sensation is now gone but she noticed some swelling to the eye. She reports the eye does not feel uncomfortable and has not changed her vision. Patient appears well. Patient appears in no acute distress. Review of Systems General: Reports: 10 or more systems reviewed and unremarkable except in HPI and below Eyes: Reports: other (Swelling to the right eye.) PFSH ED PFSH: Medical History Anxiety with depression DDD (degenerative disc disease), lumbar Dyslipidemia Essential (primary) hypertension Hesitancy of micturition History of 2019 novel coronavirus disease (COVID-19) Obstructive sleep apnea Type 2 diabetes mellitus, without long-term current use of insulin Surgical History History of hysterectomy with unilateral oophorectomy [address] History of lumbar surgery Dr. Blair 2014 Family History Other Diabetes Heart disease Osteoporosis Social History Smoking and tobacco status: never smoked Second hand smoke exposure: No Smoking risk assessment/counseling performed?: No Alcohol intake: never Desire information about alcohol rehabilitation?: No Counseling given: No Desire information about substance/drug rehabilitation?: No Counseling given: No Adopted: No Caregiver/support person: No Lives independently: Yes Housing: House Marital status: / Number of children: 2 service: No Current occupational status: employed Current occupation: [employer] History of recent travel: No Current gender identity: Female Physical Exam Const: COMMON NORMALS: no acute distress and patient oriented x3 GENERAL APPEARANCE: cooperative HENMT: COMMON NORMALS: normocephalic and Normal external nose present HEAD & SCALP: normal to inspection and normocephalic NOSE: Normal external nose present Eye: OTHER: Conjunctival edema is noted to the right eye. No foreign body is noted in the eye on exam. Pupils are equal reactive. Patient's acuity is normal for her. No corneal laceration or other significant injury is noted. Neck/C-Spine: COMMON NORMALS: full ROM Chest: COMMONS NORMALS: normal inspection of the chest Resp: COMMON NORMALS: normal respiratory effort EFFORT & INSPECTION: Yes able to speak in complete sentences Cardio: COMMON NORMALS: regular rate and regular rhythm RATE: regular rate RHYTHM: regular rhythm GI: COMMON NORMALS: non-tender Extremity: COMMON NORMALS: normal to inspection Neuro: COMMON NORMALS: patient oriented x3 and moves all extremities Psych: COMMON NORMALS: mental status grossly normal and cooperative Skin: COMMON NORMALS: no rashes or lesions noted GENERAL SKIN EXAM: no rashes or lesions noted Course Vital Signs: Vital signs: Vital Signs Temperature 98.1 F 07/21/21 17:48 Pulse Rate 79 07/21/21 17:48 Respiratory Rate 18 07/21/21 17:48 Blood Pressure 137/78 07/21/21 17:48 Pulse Oximetry 94 07/21/21 17:48 MDM - Eye Problem MDM Narrative: Medical decision making narrative: Patient comes in for swelling to the right eye. On exam we note corneal edema. No foreign body or injury is noted. Differential diagnosis includes but not limited to allergic reaction, corneal abrasion, foreign body. On exam there was no foreign body or abrasion noted. Patient was placed on antibiotic eyedrops for ecchymosis secondary to trauma versus left allergen. Patient was kept on Maxitrol 1 to 2 drops 4 times a day while awake. Patient reported understanding and agreed to plan. Patient was recommended to follow-up with eye overnight caregiver within 3 days for recheck. Patient agreed to plan. Discharge Plan Discharge Patient Disposition: Home Clinical Impression: Chemosis of right conjunctiva Condition: Stable Prescriptions: No Action lisinopril 10 mg tablet 10 mg PO DAILY Qty: 90 RF: 1 duloxetine 30 mg capsule,delayed release(DR/EC) 30 mg PO DAILY Qty: 30 RF: 2 metoprolol tartrate 25 mg tablet 25 mg PO BID Qty: 60 RF: 3 atorvastatin 20 mg tablet 20 mg PO DAILY Qty: 30 RF: 0 metformin 500 mg tablet extended release 24 hr 500 mg PO BID 90 Days Qty: 180 RF: 1 tamsulosin 0.4 mg capsule 0.4 mg PO DAILY 30 Days Qty: 30 RF: 1 Eliquis 5 mg tablet 5 mg PO BID 30 Days Qty: 60 RF: 0 Invokana 100 mg tablet 100 mg PO QAM Qty: 90 RF: 0 Discharge Orders: Discharge ED (Routine); Ordered 07/21/21 Ordered By: Solitario Hogue Referrals: Blaire Antonio DO [Primary Care Provider] - Discharge Activity: Increase activity as tolerated Patient Instructions: Corneal Abrasion (ED), Opioid Safety Activity Restrictions/Additional Instructions: Use eyedrops to the right eye, 2 drops 4 times a day while awake for the next 7 days. Follow-up with eye overnight caregiver in 3 days for recheck. Return to the emergency department for new concerns. Coding Level of Care Code ED [employer] for Ric Yun
[2021-07-21] MEDS: neomycin-poly-dex Op 5 mL Btl 2 DROP EYE-RIGHT (18:35)
== END 2021-07-21 18:36 | disposition home or self-care (01) ==
PROVIDERS: Emergency Provider Nurse Practitioner Family; PCP Family Medicine
DX: H11.421 Conjunctival edema, right eye (principal); E78.5 Hyperlipidemia, unspecified; I10 Essential (primary) hypertension; E11.9 Type 2 diabetes mellitus without complications; Z86.16 Personal history of COVID-19; Z79.84 Long term (current) use of oral hypoglycemic drugs
CPT/HCPCS: 99282

== ENCOUNTER → 2021-07-30 09:17 | Outpatient (BNVA) | payer MEDICARE, BC, SELFPAY | PROVIDERS: PCP Family Medicine; Visit Provider Family Medicine | DX: I10 Essential (primary) hypertension (principal); E78.5 Hyperlipidemia, unspecified; E11.9 Type 2 diabetes mellitus without complications | CPT/HCPCS: 80053; 80061; 83036 ==

== ENCOUNTER 2021-08-20 10:51 | Outpatient (CLI) | payer MEDICARE, BC, SELFPAY ==
[2021-08-20 11:34] LABS: Basophils # 0.1 10^3/uL (0.0-0.1); Basophils % 1.2 %; Eosinophils # 0.2 10^3/uL (0.0-0.8); Eosinophils % 4.7 %; Hemoglobin 14.3 g/dL (11.5-15.3); Lymphocytes # 1.5 10^3/uL (0.8-4.8); Lymphocytes % 29.4 %; Mean Corpuscular HGB Conc 32.5 g/dL (30.0-36.0); Mean Corpuscular Hemoglobin 33.8 pg (28.0-34.0); Mean Platelet Volume 10.6 fL (7.4-10.4); Monocytes # 0.6 10^3/uL (0.2-0.9); Neutrophils # 2.59 10^3/uL (1.8-7.7); Neutrophils % 52.5 %; Nucleated Red Blood Cells % 0 %; Platelet Count 87 10^3/cmm (130-400); Red Blood Count 4.23 10^6/uL (4.1-5.3); Red Cell Distribution Width 12.9 % (12.1-15.1); White Blood Count 4.9 10^3/uL (4.0-10.0)
--- NOTE | 2021-08-20 16:51 | ONC FU_ITS ---
Dr. Woods follow up note Patient: Kasey Vidal Unit #: [id number]: 1955 Dicatated By: Josh Woods M.D.Date of Visit:Aug 20, 2021 Onc Med Follow-up/Prog Note History of Present Illness: Ms. Kasey Vidal, is a 65-year-old female with a history of mild progressive thrombocytopenia since 2016, as per patient initially her platelet count was around 120,000 and then dropped down 100,000 range and recently on February 02, 2021 her CBC showed platelet count 77,000 with a normal white blood count at 4.6, hemoglobin 13.5 hematocrit 42.4., Patient was referred to hematology clinic for evaluation for isolated mildly progressive thrombocytopenia. Patient denies any history of nosebleed or gum bleed, melena or hematochezia, dysuria or hematuria, or petechia or ecchymosis Patient denies any history of night sweats, recurrent fever, weight loss, peripheral lymphadenopathy or abdominal fullness., As per patient she was diagnosed with Covid infection in August 2020 but her symptoms were mild, did not require hospitalization. As far as past medical history is concerned, patient has history of hypertension, diabetes, peripheral neuropathy, sleep apnea, on CPAP, medication, she is on Metformin for many years, lisinopril for more than 5 years Trulicity was started about 2 years ago, duloxetine was started a year ago, prior to that she was on gabapentin for neuropathy. Patient denies alcohol use or smoking, Abdominal sonogram done on March 18, 2021 shows spleen size measured 11.2 x 5.7 x 5.2 cm and incidental splenic granulomas. Bone marrow evaluation done on May 19, 2021 showed normocellular bone marrow for age, adequate megakaryopoiesis, no overt dyspoietic or megaloblastic changes seen no blast increased. No significant reticulin fibrosis On peripheral blood smear no platelet clumping seen mild to moderate thrombocytopenia with minimal platelet anisocytosis. FISH for CML was negative FISH for myeloma was negative Came for follow-up, denies any specific complaints, no fever chills, no nausea or vomiting, no diarrhea constipation, no petechia or ecchymosis, no nosebleed, no melena hematochezia, no hemoptysis hematemesis, tolerating anticoagulation well Medications: Atorvastatin Calcium 20 mg - Take 1 Tablet Oral at bedtime, Benadryl 25 mg - Take 2 Capsule Oral q 4 hours PRN, DULoxetine HCl 1 Caplet (of 30 mg) Capsule Delayed Release Particles Oral daily, Eliquis 1 Tablet (of 5 mg) Oral b.i.d., Lisinopril 1 (10 mg) Tablet Oral daily, Melatonin 10 mg - Take 1 Capsule Oral at bedtime PRN, MetFORMIN HCl 500 mg - Take 2 Tablet Oral b.i.d., Tamsulosin HCl 1 Caplet (of 0.4 mg) Capsule Oral daily, traMADol HCl 1 Tablet (of 50 mg) Oral q 6 hours PRN Allergies: Ibuprofen Review of Systems: Review of Systems is not available for this patient. Vital Signs: Performed on Aug 20, 2021 12:40 Height - 63.50 in Weight - 190.4 lbs (HIGH) BSA - 1.90 sq.m BMI - 33.20 (HIGH) Temperature - 97.3 F (LOW) Pulse - 72 /min Respiration - 17 /min BP - 101/64 mm(hg) O2 Sat - 94 % (LOW) Pain - 0 Performance Status: 0 - Fully active, able to carry on all predisease activities without restrictions. (ECOG) Physical Examination: ENMT - No mouth sores, no thrush, no jaundice, Respiratory - Lungs are clear to auscultation, Cardiovascular - Regular rate and rhythm of heart, Abdomen - Soft, bowel sounds present, Extremities - No visible edema. Lab/Imaging: Most recent lab results are not available for this patient. Impression: Isolated progressive mild/moderate thrombocytopenia etiology unclear could be multifactorial including drug-induced e.g. Trulicity 25% incidence of thrombocytopenia reported within first 2 years of use, CHRIS inhibitor, duloxetine can cause but uncommon. Or low-grade ITP As bone marrow evaluation was done on May 19, 2021, reported on June 08, 2021 showed normocellular bone marrow for age, adequate megakaryopoiesis, no overt dyspoietic or megaloblastic changes seen. Blasts are not increased. And peripheral blood smear showed no significant platelet clumping, mild to moderate thrombocytopenia with minimal platelet anisocytosis Abdominal sonogram done on March 18, 2021 shows no splenomegaly Paroxysmal atrial flutter or being managed medically Diabetes mellitus Hypertension DJD Plan: Discussed with patient regarding labs white blood count 4.9 hemoglobin 14.3 hematocrit 44 platelets 87,000 compared to 84,000 previously Clinically, patient doing well with no new signs symptom suggestive of gross bleeding, her hemoglobin is normal, her isolated mild/moderate thrombocytopenia stable, will continue to monitor patient is on anticoagulation for cardiology. Return to clinic in 2 months with CBC, patient was advised in case there is evidence of gross bleeding or petechia or ecchymosis or easy bruising she need to call us Signed By: Josh Woods M.D. <<Signature on File>>
== END 2021-08-20 10:52 | disposition home or self-care (01) ==
PROVIDERS: PCP Family Medicine; Visit Provider Internal Medicine Hematology & Oncology
DX: D69.6 Thrombocytopenia, unspecified (principal); I48.92 Unspecified atrial flutter; E11.9 Type 2 diabetes mellitus without complications; I10 Essential (primary) hypertension; M19.90 Unspecified osteoarthritis, unspecified site; Z79.899 Other long term (current) drug therapy
CPT/HCPCS: 36415; 85025; 99214

== ENCOUNTER 2021-08-28 17:08 | Emergency (ER) | payer OTHER, SELFPAY ==
[2021-08-28] VITALS (7 sets, daily range): BP systolic 86–104; BP diastolic 39–59; PULSE 74–82; RESP 14–22; TEMP 36.8; O2SAT 91–95; BMI 33.6
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
[2021-08-28] MEDS: iohexol 300 mg/mL 100 mL Btl IV (17:57)
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
[2021-08-28] MEDS: fentaNYL 50 mcg/mL INJ 2mL IVP ×2 (20:00→22:27)
[2021-08-28] MEDS: sodium chloride 0.9% 1,000 ML 999 ML IV (20:00)
[2021-08-28 20:19] LABS: Basophils # 0.1 10^3/uL (0.0-0.1); Basophils % 0.6 %; Eosinophils # 0.1 10^3/uL (0.0-0.8); Eosinophils % 0.4 %; Hematocrit 41.2 % (37.0-47.0); Hemoglobin 13.1 g/dL (11.5-15.3); Lymphocytes # 1.1 10^3/uL (0.8-4.8); Lymphocytes % 8.2 %; Mean Corpuscular HGB Conc 31.8 g/dL (30.0-36.0); Mean Corpuscular Hemoglobin 33.2 pg (28.0-34.0); Mean Corpuscular Volume 104.6 fl (81-99); Mean Platelet Volume 11.4 fL (7.4-10.4); Monocytes # 1.6 10^3/uL (0.2-0.9); Neutrophils # 10.34 10^3/uL (1.8-7.7); Neutrophils % 78.1 %; Nucleated Red Blood Cells % 0 %; Platelet Count 88 10^3/cmm (130-400); Red Blood Count 3.94 10^6/uL (4.1-5.3); White Blood Count 13.2 10^3/uL (4.0-10.0)
[2021-08-28 20:34] LABS: Alanine Aminotransferase 45 U/L (0-33); Albumin Level 3.3 g/dL (3.5-5.2); Alkaline Phosphatase 79 IU/L (35-105); Anion Gap 18.1 (5-19); Aspartate Amino Transferase 68 U/L (0-32); Blood Urea Nitrogen 10 mg/dL (8-23); Calcium 8.6 mg/dL (8.5-10.5); Carbon Dioxide 22 mmol/L (22-29); Chloride 105 mmol/L (98-107); Creatinine Clr Calc Pharmacy 71.0055; Globulin 2.9 g/dL (1.3-4.6); Glomerular Filtration Rate 123.1 mL/min (90-130); Glucose 173 mg/dL (65-115); Osmolality Calculated 295 mOsm/kg (285-295); Potassium 4.1 mmol/L (3.5-5.1); Sodium 141 mmol/L (136-145); Total Bilirubin 1.3 mg/dL (0.15-1.2); Total Protein 6.2 g/dL (6.6-8.7)
== END 2021-08-28 22:38 ==
PROVIDERS: Emergency Provider Emergency Medicine; PCP Family Medicine
DX: Z04.1 Encounter for examination and observation following transport accident (principal); Z79.84 Long term (current) use of oral hypoglycemic drugs; Z79.01 Long term (current) use of anticoagulants; E78.5 Hyperlipidemia, unspecified; I10 Essential (primary) hypertension; E11.9 Type 2 diabetes mellitus without complications; V89.2XXA Person injured in unspecified motor-vehicle accident, traffic, initial encounter
CPT/HCPCS: 51702; 70450; 70486; 71260; 72125; 74177; 80053; 85025; 96361; 96374; 99284; J3010; J7030; Q9967

== ENCOUNTER 2021-09-09 12:24 | Outpatient (CLI) | payer MEDICARE, BC, SELFPAY ==
[2021-09-09 13:44] LABS: Basophils % 0.2 %; Eosinophils # 0.2 10^3/uL (0.0-0.8); Eosinophils % 1.6 %; Hematocrit 34.4 % (37.0-47.0); Hemoglobin 10.7 g/dL (11.5-15.3); Lymphocytes # 0.8 10^3/uL (0.8-4.8); Lymphocytes % 6.8 %; Mean Corpuscular HGB Conc 31.1 g/dL (30.0-36.0); Mean Corpuscular Hemoglobin 31.7 pg (28.0-34.0); Mean Corpuscular Volume 101.8 fl (81-99); Mean Platelet Volume 10.6 fL (7.4-10.4); Monocytes # 1.2 10^3/uL (0.2-0.9); Monocytes % 9.9 %; Neutrophils # 9.63 10^3/uL (1.8-7.7); Neutrophils % 80.8 %; Nucleated Red Blood Cells % 0 %; Platelet Count 96 10^3/cmm (130-400); Red Blood Count 3.38 10^6/uL (4.1-5.3); Red Cell Distribution Width 17.8 % (12.1-15.1); White Blood Count 11.9 10^3/uL (4.0-10.0)
[2021-09-09 14:37] LABS: Alanine Aminotransferase 33 U/L (0-33); Albumin Level 2.7 g/dL (3.5-5.2); Alkaline Phosphatase 148 IU/L (35-105); Aspartate Amino Transferase 39 U/L (0-32); Blood Urea Nitrogen 13 mg/dL (8-23); Calcium 7.8 mg/dL (8.5-10.5); Carbon Dioxide 25 mmol/L (22-29); Chloride 101 mmol/L (98-107); Globulin 3.3 g/dL (1.3-4.6); Glomerular Filtration Rate 123.1 mL/min (90-130); Glucose 202 mg/dL (65-115); Osmolality Calculated 284 mOsm/kg (285-295); Sodium 134 mmol/L (136-145); Total Bilirubin 2.8 mg/dL (0.15-1.2)
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
== END 2021-09-09 12:25 | disposition home or self-care (01) ==
PROVIDERS: PCP Family Medicine; Visit Provider Internal Medicine Hematology & Oncology
DX: D69.6 Thrombocytopenia, unspecified (principal); R16.1 Splenomegaly, not elsewhere classified; I48.0 Paroxysmal atrial fibrillation; E11.9 Type 2 diabetes mellitus without complications; I10 Essential (primary) hypertension; M19.90 Unspecified osteoarthritis, unspecified site; Z79.899 Other long term (current) drug therapy
CPT/HCPCS: 36415; 80053; 85025; 99214

== ENCOUNTER 2021-09-16 06:24 | Inpatient (IN) | payer OTHER, SELFPAY ==
[2021-09-16] VITALS (12 sets, daily range): BP systolic 96–152; BP diastolic 46–106; PULSE 75–102; RESP 16–24; TEMP 36.8–37.9; O2SAT 90–95; BMI 31.8
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
--- NOTE | 2021-09-16 06:36 | XRR_ITS ---
PROCEDURE INFORMATION: Exam: XR Chest Exam date and time: 09/16/2021 6:36 AM Age: 65 years old Clinical indication: Patient HX: Had back surg on 09-01-21 woke up this am with a fever; Additional info: Dyspnea/cough TECHNIQUE: Imaging protocol: XR of the chest. Views: 1 view. Total images: 1 COMPARISON: CT chest abd pel w con* 08/28/2021 6:00 PM FINDINGS: Lungs: Nonspecific bibasilar opacities, favoring atelectasis or pneumonia. Pleural spaces: There is blunting of both costophrenic angles, suggestive of small pleural effusions versus. Heart/Mediastinum: Heart size is stable when compared to the prior exam. Bones/joints: Spinal fixation hardware with rods and pedicle screws have been placed in the interim in the mid thoracic spine. Soft tissues: Skin raina are present. XR/XR chest 1V portable [id number] IMPRESSION: 1. Nonspecific bibasilar opacities, favoring atelectasis or pneumonia. 2. There is blunting of both costophrenic angles, suggestive of small pleural effusions versus. Radiation Dose CTDIVOL = (mGy): DLP = (mGy-cm)
--- NOTE | 2021-09-16 06:36 | ECG_ITS ---
[facility] Test Date: 2021-09-16 Pat Name: Kasey Vidal Department: Room: Gender: Female Network Applications Specialist: : [id number] Requested By: Ren Landeros Order Number: [id number] Reading MD: ELENA PRO Measurements Intervals [place] Rate: 93 P: 8 MD: 132 QRS: 23 QRSD: 84 T: 31 QT: 364 QTc: 453 Interpretive Statements SINUS RHYTHM NONSPECIFIC T-WAVE ABNORMALITY No previous ECG available for comparison Electronically Signed On 09-17-2021 0:11:05 CDT by ELENA PRO [id number]
--- NOTE | 2021-09-16 07:25 | CT_ITS ---
WS: [id number] CTA OF THE CHEST WITH PULMONARY EMBOLISM PROTOCOL TECHNIQUE: High-resolution contrast enhanced CTA of the chest with coronal and sagittal reformatted i rashauns with pulmonary embolism protocol. MIP images are also reviewed. CLINICAL INFORMATION: Fever shortness of breath right pleural effusion COMPARISON: CT August 28, 2021 DLP: 514.[address] scans at [facility] use at least one of these dose optimization techniques: automated e xposure control; mA and/or kV adjustment per patient size (includes targeted exams where dose is matc hed to clinical indication); or iterative reconstruction. FINDINGS: Moderate right pleural effusion. Small left pleural effusion. Compressive atelectasis in the lung bas es right greater than left. Pleural effusion has increased since August 28, 2021. Postoperative disla ges dorsal pedicle screw fixation upper and mid thoracic spine is new from previous with interconnect ing rods and laminectomy defects. Postoperative changes in the dorsal soft tissues. Beam hardening ar tifact degrades some images. Proximal main pulmonary arteries are normal. Proximal segmental pulmonary arteries appear normal. Dis amauri subsegmental pulmonary arteries not well evaluated due to suboptimal contrast bolus. No evidence of pulmonary embolus. Normal caliber thoracic aorta. Aortic calcification. No axillary lymphadenopathy. No mediastinal or h ilar lymphadenopathy. Small amount of perihepatic and perisplenic ascites. Hepatomegaly and splenomegaly. Small esophageal hiatal hernia. Left adrenal adenoma. CT/CT angio chest PE protcl [id number] IMPRESSION: 1. No evidence of pulmonary embolus. Distal subsegmental pulmonary arteries no t well evaluated. 2. Moderate right and small left pleural effusions with compressive atelectasi s in the lung bases. 3. Hepatomegaly and splenomegaly with a small amount of perihepatic and perisp lenic ascites likely due to portal hypertension. Recommend correlation with luis fernando er function studies. 4. Small esophageal hiatal hernia. 5. Upper lungs are well aerated. 6. Postoperative changes pedicle screw fixation with interconnecting rods in t he mid and upper thoracic spine is new from previous with associated laminectom y defects.
[2021-09-16] MEDS: morphine 4 mg/mL SDV 1 mL IVP (07:26)
[2021-09-16] MEDS: ondansetron 2 mg/ML SDV 2 mL 4 MG IVP (07:26)
[2021-09-16] MEDS: piperacillin-tazobactam 3.375 GM in sodium chloride 0.9% (plus) 50 ML IV (07:27)
[2021-09-16 07:30] LABS: Basophils % 0.3 %; Eosinophils # 0.1 10^3/uL (0.0-0.8); Eosinophils % 0.6 %; Hematocrit 36.6 % (37.0-47.0); Hemoglobin 11.5 g/dL (11.5-15.3); Lymphocytes # 0.7 10^3/uL (0.8-4.8); Mean Corpuscular HGB Conc 31.4 g/dL (30.0-36.0); Mean Corpuscular Hemoglobin 32.4 pg (28.0-34.0); Mean Corpuscular Volume 103.1 fl (81-99); Mean Platelet Volume 10.9 fL (7.4-10.4); Neutrophils # 12.31 10^3/uL (1.8-7.7); Neutrophils % 86.5 %; Nucleated Red Blood Cells % 0 %; Platelet Count 69 10^3/cmm (130-400); Red Blood Count 3.55 10^6/uL (4.1-5.3); Red Cell Distribution Width 18.2 % (12.1-15.1); White Blood Count 14.2 10^3/uL (4.0-10.0)
[2021-09-16] MEDS: vancomycin 1,000 MG in sodium chloride 0.9% 250 ML 250 MG IV (08:00)
[2021-09-16] MEDS: iohexol 350 mg/mL 100 mL Btl IV (08:07)
[2021-09-16 08:21] LABS: Alanine Aminotransferase 45 U/L (0-33); Albumin Level 2.5 g/dL (3.5-5.2); Alkaline Phosphatase 332 IU/L (35-105); Anion Gap 12.8 (5-19); Aspartate Amino Transferase 39 U/L (0-32); Blood Urea Nitrogen 12 mg/dL (8-23); Calcium 7.7 mg/dL (8.5-10.5); Carbon Dioxide 28 mmol/L (22-29); Chloride 101 mmol/L (98-107); Globulin 2.9 g/dL (1.3-4.6); Glomerular Filtration Rate 123.1 mL/min (90-130); Glucose 136 mg/dL (65-115); Osmolality Calculated 288 mOsm/kg (285-295); Potassium 3.8 mmol/L (3.5-5.1); Sodium 138 mmol/L (136-145); Total Bilirubin 2.5 mg/dL (0.15-1.2); Total Protein 5.4 g/dL (6.6-8.7)
--- NOTE | 2021-09-16 09:02 | US_ITS ---
WS: [id number] ULTRASOUND ABDOMEN LIMITED CLINICAL INFORMATION: elevated LFTs COMPARISON: None. FINDINGS: Technically difficult examination Liver Size: Normal. Craniocaudal length: 13.5 cm. Echogenicity: Coarse Surface nodularity: Cirrhotic Mass (size and location): None. Small amount of perihepatic ascites. Bile ducts Intrahepatic ducts: Normal. Common bile duct diameter: 0.6 cm. Gallbladder Sludge Gallstones: None. Gallbladder sludge: Present Gallbladder wall thickening: None. Pericholecystic fluid: None. Sonographic Samano sign: Absent. Pancreas Normal as visualized. Right kidney: Normal. Hydronephrosis: None. Size: 10.5 cm x 4.4 cm x 5.2 cm. Abdominal aorta and IVC Visualized portions are normal. Ascites: None. US/US gall bladder [id number] IMPRESSION: 1. Coarse hepatic echogenicity likely due to hepatocellular disease with cirrh otic liver configuration 2. Small amount perihepatic ascites. 3. Gallbladder sludge. No evidence of acute cholecystitis. 4. No hydronephrosis in right kidney.
[2021-09-16 09:22] LABS: Lipase 97 U/L (13-60)
[2021-09-16 09:38] LABS: Add Urine Microscopic? YES; Bilirubin Urine 1+ (Negative); Blood Urine 3+ (Negative); Glucose Urine UA Norm (Normal); Ketones Urine Negative (Negative); Leukocyte Esterase Urine 2+ (Negative); Nitrate Urine Negative (Negative); Protein Urine 1+ (Negative); Urine Appearance SL Hazy (CLEAR); Urine Color Yellow (Yellow); Urobilinogen Urine 4 mg/dL (Negative); pH Urine 5 (5-7)
[2021-09-16 09:56] LABS: Lactic Sepsis W/Reflex 2.5 mmol/L (0.5-2.2)
[2021-09-16 10:01] LABS: Bacteria Urine 2+ /hpf; WBC Urine TOO NUMEROUS TO CNT /hpf (0-5)
[2021-09-16 10:02] LABS: Add Urine Culture? Yes
[2021-09-16] MEDS: sodium chloride 0.9% 2,449.41 ML 2449.41 ML IV (10:10)
--- NOTE | 2021-09-16 10:21 | PC.PHAR ---
pt states she takes care of her own medications-pt states her pcp put the eliquis and invokana on hold since 08/28/21-pt states she takes 1000mg of metformin bid ext med history shows last filled on 07/15/21 90d/s for 500mg bid-ext med history shows lisinopril 10mg daily last filled on 07/29/21 90d/s pt states it was decreased to 5mg daily-pt states she is on a titrating dose of prednisone pt states she should take the 4 tabs of the 2nd day today-notes are made in the pharmacy comments
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
[2021-09-16 11:21] LABS: Reflex Lactate Order REFLEX LACTIC ORDERD
[2021-09-16 12:02] LABS: Thyroid Stimulating Hormone 0.99 uIU/mL (0.27-4.20)
[2021-09-16 13:11] LABS: Lactic Acid level (Lactate) 1.9 mmol/L (0.5-2.2)
[2021-09-16] MEDS: acetaminophen 1,000 MG/100 ML PIGGYBACK 400 MG IV (15:03)
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
[2021-09-16] MEDS: sodium chloride 0.9% 1,000 ML 75 ML IV (16:30)
[2021-09-16] MEDS: predniSONE 20 mg Tablet 30 MG PO (16:30)
[2021-09-16] MEDS: cefTRIAXone 1,000 MG in sodium chloride 0.9% (plus) 50 ML 100 MG IV (16:30)
[2021-09-16 17:23] LABS: Glucose Point of Care 181 mg/dL (70-110)
[2021-09-16] MEDS: insulin lispro 100 unit/1 mL SUBCUT ×2 (21:47→22:27)
[2021-09-17] VITALS (10 sets, daily range): BP systolic 91–128; BP diastolic 48–68; PULSE 63–84; RESP 16–20; TEMP 36.6–36.8; O2SAT 90–95
--- NOTE | 2021-09-17 00:59 | PC.NURSE ---
Blood pressure was 104/58. Pulse was 85. Patient stated My pcp has been watching my bp because the metoprolol is dropping it really low. Held maryam. JOHN Booth
[2021-09-17] MEDS: duloxetine 30 mg Capsule PO (05:13)
[2021-09-17] MEDS: cefTRIAXone 1,000 MG in sodium chloride 0.9% (plus) 50 ML 100 MG IV ×2 (05:13→17:02)
[2021-09-17] MEDS: tamsulosin 0.4 mg Capsule PO (05:13)
[2021-09-17] MEDS: sodium chloride 0.9% 1,000 ML 75 ML IV (05:14)
[2021-09-17 06:00] LABS: Basophils % 0.2 %; Eosinophils % 0.1 %; Hematocrit 35.1 % (37.0-47.0); Hemoglobin 10.8 g/dL (11.5-15.3); Lymphocytes # 0.8 10^3/uL (0.8-4.8); Lymphocytes % 5.9 %; Mean Corpuscular HGB Conc 30.8 g/dL (30.0-36.0); Mean Corpuscular Hemoglobin 32.9 pg (28.0-34.0); Mean Platelet Volume 10.6 fL (7.4-10.4); Monocytes # 1.2 10^3/uL (0.2-0.9); Monocytes % 8.1 %; Neutrophils # 12.13 10^3/uL (1.8-7.7); Neutrophils % 85.1 %; Nucleated Red Blood Cells % 0 %; Platelet Count 52 10^3/cmm (130-400); Red Blood Count 3.28 10^6/uL (4.1-5.3); Red Cell Distribution Width 17.8 % (12.1-15.1); White Blood Count 14.3 10^3/uL (4.0-10.0)
[2021-09-17 06:27] LABS: Alanine Aminotransferase 42 U/L (0-33); Albumin Level 2.4 g/dL (3.5-5.2); Alkaline Phosphatase 308 IU/L (35-105); Aspartate Amino Transferase 39 U/L (0-32); Blood Urea Nitrogen 13 mg/dL (8-23); Calcium 7.7 mg/dL (8.5-10.5); Carbon Dioxide 26 mmol/L (22-29); Chloride 105 mmol/L (98-107); Glomerular Filtration Rate 99.7 mL/min (90-130); Glucose 210 mg/dL (65-115); Osmolality Calculated 290 mOsm/kg (285-295); Sodium 137 mmol/L (136-145); Total Bilirubin 1.9 mg/dL (0.15-1.2); Total Protein 5.4 g/dL (6.6-8.7)
[2021-09-17 06:30] LABS: Anion Gap 10.3 (5-19); Potassium 4.3 mmol/L (3.5-5.1)
--- NOTE | 2021-09-17 06:40 | PC.NURSE ---
Patient slept great through out the night with no complaints. Resting in bed this morning with call light in reach.
--- NOTE | 2021-09-17 06:50 | XR_ITS ---
WS: [id number] Thoracic spine, AP and lateral views, 09/17/2021 Clinical Data: Recent Thoracic Fusion Comparison: None. Findings: The patient has had a posterior thoracic fusion with bilateral pedicle screws at T3-T5 and T7-T9 wit h connecting rods and a transverse band at T5. Diffuse osteoporosis and osteoarthritis of the thoraci c vertebral bodies is noted. No compression fractures are seen. Surgical raina are present. The par avertebral regions are unremarkable. XR/XR thoracic spine 2V [id number] Impression: 1. Intact posterior thoracic fusion. 2. Diffuse osteoarthritis and osteoporosis.
[2021-09-17 06:53] LABS: Glucose Point of Care 194 mg/dL (70-110)
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
[2021-09-17] MEDS: predniSONE 20 mg Tablet 30 MG PO (08:24)
--- NOTE | 2021-09-17 08:24 | USCV_ITS ---
Kasey Vidal Age: 65 Gender: F : 1955 Exam Date: 09/17/2021 12:40 Ordering Phys: Ciro Watts MD Technologist: Exam [place] [facility] [place]ication: EDEMA PROCEDURES: Venous duplex imaging was performed in bilateral lower extremities. The following venous structures were evaluated: common femoral vein, profunda vein, proximal portion of the greater saphenous vein, superficial femoral vein, and the popliteal vein. In addition, the posterior tibial and peroneal trunk were evaluated. Serial compression, augmentation maneuvers, and spectral Doppler flow evaluation were performed. FINDINGS: Normal 2-D Doppler and augmentation and compressibility throughout the lower extremity venous structures. Additional imaging through the proximal calf veins also reveals no thrombus. Limited evaluation of the greater saphenous vein is patent with no thrombus.. CONCLUSIONS No evidence of right lower extremity DVT. No evidence of left lower extremity DVT. Crow Craig MD (Electronically Signed) Final Date: 17 September 2021 17:25 S
[2021-09-17] MEDS: insulin lispro 100 unit/1 mL SUBCUT ×4 (08:25→21:01)
[2021-09-17] MEDS: metoprolol tartrate 25 mg Tablet PO ×2 (08:25→21:00)
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
[2021-09-17] MEDS: FUROsemide 20 mg Tablet PO (09:25)
[2021-09-17 12:27] LABS: Glucose Point of Care 251 mg/dL (70-110)
[2021-09-17 17:23] LABS: Glucose Point of Care 272 mg/dL (70-110)
[2021-09-17 20:51] LABS: Glucose Point of Care 265 mg/dL (70-110)
[2021-09-17] MEDS: oxyCODONE 5 mg IR Tab/Cap PO (21:51)
[2021-09-18] VITALS: BP 117/59; PULSE 63; RESP 18; TEMP 37.1; O2SAT 92
[2021-09-18 04:00] VITALS: BP 130/78; PULSE 66; RESP 19; TEMP 36.7; O2SAT 93
[2021-09-18 05:08] LABS: Basophils % 0.3 %; Eosinophils # 0.3 10^3/uL (0.0-0.8); Eosinophils % 2.4 %; Hematocrit 33.8 % (37.0-47.0); Hemoglobin 10.7 g/dL (11.5-15.3); Lymphocytes # 1.4 10^3/uL (0.8-4.8); Lymphocytes % 13.6 %; Mean Corpuscular HGB Conc 31.7 g/dL (30.0-36.0); Mean Corpuscular Hemoglobin 32.7 pg (28.0-34.0); Mean Corpuscular Volume 103.4 fl (81-99); Mean Platelet Volume 11.3 fL (7.4-10.4); Monocytes # 1.1 10^3/uL (0.2-0.9); Monocytes % 10.3 %; Nucleated Red Blood Cells % 0 %; Platelet Count 52 10^3/cmm (130-400); Red Blood Count 3.27 10^6/uL (4.1-5.3); Red Cell Distribution Width 17.7 % (12.1-15.1); White Blood Count 10.5 10^3/uL (4.0-10.0)
[2021-09-18] MEDS: duloxetine 30 mg Capsule PO (05:27)
[2021-09-18] MEDS: tamsulosin 0.4 mg Capsule PO (05:27)
[2021-09-18] MEDS: cefTRIAXone 1,000 MG in sodium chloride 0.9% (plus) 50 ML 100 MG IV (05:28)
[2021-09-18 05:32] LABS: Alanine Aminotransferase 41 U/L (0-33); Albumin Level 2.2 g/dL (3.5-5.2); Alkaline Phosphatase 322 IU/L (35-105); Anion Gap 6.9 (5-19); Aspartate Amino Transferase 37 U/L (0-32); Blood Urea Nitrogen 13 mg/dL (8-23); Calcium 7.9 mg/dL (8.5-10.5); Carbon Dioxide 29 mmol/L (22-29); Chloride 106 mmol/L (98-107); Globulin 3.1 g/dL (1.3-4.6); Glomerular Filtration Rate 123.1 mL/min (90-130); Glucose 137 mg/dL (65-115); Osmolality Calculated 288 mOsm/kg (285-295); Potassium 3.9 mmol/L (3.5-5.1); Sodium 138 mmol/L (136-145); Total Bilirubin 1.4 mg/dL (0.15-1.2); Total Protein 5.3 g/dL (6.6-8.7)
[2021-09-18 06:00] VITALS: PULSE 66
[2021-09-18 07:16] LABS: Glucose Point of Care 115 mg/dL (70-110)
[2021-09-18 07:45] VITALS: BP 111/61; PULSE 74; RESP 17; TEMP 36.7; O2SAT 94
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
[2021-09-18] MEDS: predniSONE 20 mg Tablet 30 MG PO (08:25)
[2021-09-18] MEDS: metoprolol tartrate 25 mg Tablet PO (08:26)
[2021-09-18 09:40] VITALS: BP 111/61; PULSE 74; RESP 17; TEMP 36.7; O2SAT 94
== END 2021-09-18 09:41 | disposition home health service (06) | DRG 690 ==
LOC: ER 10:45 → MEDSURG 14:59
PROVIDERS: Admitting Provider Internal Medicine; Emergency Provider Family Medicine; PCP Family Medicine; Visit Provider Internal Medicine
DX: N39.0 Urinary tract infection, site not specified (principal); D69.3 Immune thrombocytopenic purpura; F41.8 Other specified anxiety disorders; K74.60 Unspecified cirrhosis of liver; M51.36 Other intervertebral disc degeneration, lumbar region; E11.42 Type 2 diabetes mellitus with diabetic polyneuropathy; E78.5 Hyperlipidemia, unspecified; Z86.16 Personal history of COVID-19; G47.33 Obstructive sleep apnea (adult) (pediatric); I95.9 Hypotension, unspecified; I10 Essential (primary) hypertension; Z98.1 Arthrodesis status; Z79.891 Long term (current) use of opiate analgesic; B96.20 Unspecified Escherichia coli [E. coli] as the cause of diseases classified elsewhere; Z79.84 Long term (current) use of oral hypoglycemic drugs
CPT/HCPCS: 36415; 36416; 71045; 71275; 72070; 74176; 76705; 80053; 81001; 82962; 83605; 83690; 84443; 85025; 87040; 87077; 87086; 87186; 93005; 93970; 96365; 96367; 96372; 96375; 99285; J0696; J1815; J2270; J2405; J2543; J3370; J7030; J7050; J7512; Q9967

== ENCOUNTER → 2021-09-24 10:25 | Outpatient (BNVA) | payer OTHER, SELFPAY | PROVIDERS: PCP Family Medicine; Visit Provider Family Medicine | DX: D69.6 Thrombocytopenia, unspecified (principal) | CPT/HCPCS: 85025 ==

== ENCOUNTER 2021-10-16 10:51 | Outpatient (CLI) | payer MEDICARE, BC, SELFPAY ==
[2021-10-16 11:39] LABS: Basophils # 0.2 10^3/uL (0.0-0.1); Basophils % 2.6 %; Eosinophils # 1.1 10^3/uL (0.0-0.8); Eosinophils % 12.3 %; Hematocrit 38.6 % (37.0-47.0); Hemoglobin 12.3 g/dL (11.5-15.3); Lymphocytes # 1.6 10^3/uL (0.8-4.8); Lymphocytes % 18.3 %; Mean Corpuscular HGB Conc 31.9 g/dL (30.0-36.0); Mean Corpuscular Hemoglobin 32.4 pg (28.0-34.0); Mean Corpuscular Volume 101.6 fl (81-99); Mean Platelet Volume 10.3 fL (7.4-10.4); Monocytes # 0.9 10^3/uL (0.2-0.9); Neutrophils % 55.3 %; Nucleated Red Blood Cells % 0 %; Platelet Count 130 10^3/cmm (130-400); Red Cell Distribution Width 15.1 % (12.1-15.1); White Blood Count 8.5 10^3/uL (4.0-10.0)
[2021-10-16 12:01] LABS: Ferritin 530 ng/mL (15-150); Iron 42 ug/dL (37-145); Percent Saturation 21.8 % (20-50); Total Iron Binding Capacity 192 mcg/dl; Unsaturated Iron Binding 150 ug/dL (112-347)
[2021-10-16 12:15] LABS: Vitamin B12 580 pg/mL (232-1245)
[2021-10-16 12:16] LABS: Folate Level 9.5 ng/mL (4.8-37.3)
== END 2021-10-16 10:52 | disposition home or self-care (01) ==
PROVIDERS: PCP Family Medicine; Visit Provider Internal Medicine Hematology & Oncology
DX: D69.6 Thrombocytopenia, unspecified (principal); D50.9 Iron deficiency anemia, unspecified
CPT/HCPCS: 36415; 82607; 82728; 82746; 83540; 83550; 85025

== ENCOUNTER 2021-11-02 08:03 | Outpatient (CLI) | payer MEDICARE, BC, SELFPAY ==
[2021-11-02 08:39] LABS: Basophils # 0.1 10^3/uL (0.0-0.1); Basophils % 1.7 %; Eosinophils # 0.4 10^3/uL (0.0-0.8); Eosinophils % 9.4 %; Hematocrit 39.2 % (37.0-47.0); Hemoglobin 12.3 g/dL (11.5-15.3); Lymphocytes # 1.2 10^3/uL (0.8-4.8); Lymphocytes % 26.4 %; Mean Corpuscular HGB Conc 31.4 g/dL (30.0-36.0); Mean Corpuscular Hemoglobin 31.9 pg (28.0-34.0); Mean Corpuscular Volume 101.8 fl (81-99); Mean Platelet Volume 9.8 fL (7.4-10.4); Monocytes # 0.7 10^3/uL (0.2-0.9); Monocytes % 13.9 %; Neutrophils # 2.27 10^3/uL (1.8-7.7); Neutrophils % 48.4 %; Nucleated Red Blood Cells % 0 %; Platelet Count 116 10^3/cmm (130-400); Red Blood Count 3.85 10^6/uL (4.1-5.3); Red Cell Distribution Width 14.2 % (12.1-15.1); White Blood Count 4.7 10^3/uL (4.0-10.0)
[2021-11-02 08:55] LABS: Alanine Aminotransferase 13 U/L (0-33); Albumin Level 2.3 g/dL (3.5-5.2); Alkaline Phosphatase 132 IU/L (35-105); Anion Gap 13.9 (5-19); Aspartate Amino Transferase 31 U/L (0-32); Blood Urea Nitrogen 6 mg/dL (8-23); Calcium 7.8 mg/dL (8.5-10.5); Carbon Dioxide 25 mmol/L (22-29); Chloride 105 mmol/L (98-107); Globulin 4.1 g/dL (1.3-4.6); Glomerular Filtration Rate 123.1 mL/min (90-130); Glucose 125 mg/dL (65-115); Osmolality Calculated 289 mOsm/kg (285-295); Potassium 3.9 mmol/L (3.5-5.1); Sodium 140 mmol/L (136-145); Total Bilirubin 1.8 mg/dL (0.15-1.2); Total Protein 6.4 g/dL (6.6-8.7)
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
== END 2021-11-02 08:04 | disposition home or self-care (01) ==
LOC: ONCMED 08:06
PROVIDERS: PCP Family Medicine; Visit Provider Internal Medicine Hematology & Oncology
DX: D69.6 Thrombocytopenia, unspecified (principal); I48.92 Unspecified atrial flutter; Z79.01 Long term (current) use of anticoagulants; E11.59 Type 2 diabetes mellitus with other circulatory complications; I10 Essential (primary) hypertension; M47.814 Spondylosis without myelopathy or radiculopathy, thoracic region; E80.6 Other disorders of bilirubin metabolism; Z79.899 Other long term (current) drug therapy
CPT/HCPCS: 36415; 80053; 85025; 99214

== ENCOUNTER 2021-11-24 06:40 | Outpatient (CLI) | payer MEDICARE, BC, SELFPAY ==
--- NOTE | 2021-11-24 06:44 | US_ITS ---
WS: [id number] ULTRASOUND ABDOMEN CLINICAL INFORMATION: JAUNDICE COMPARISON: Ultrasound September 16, [address] August 28, 2021 FINDINGS: Liver Size: Normal. Craniocaudal length: 14.6 cm. Echogenicity: Coarse Surface nodularity: Cirrhotic Mass (size and location): Echogenic 2.3 x 1.8 cm lesion right hepatic lobe is nonspecific in a cirrho tic liver. Differential considerations include dysplastic nodule versus cavernous hemangioma. Recomme nd further evaluation with triphasic liver CT. Bile ducts Intrahepatic ducts: Normal. Common bile duct diameter: 0.6 cm. Gallbladder Gallbladder sludge versus sludge ball Gallstones: None. Gallbladder sludge: Present Gallbladder wall thickening: Mild due to liver disease Pericholecystic fluid: None. Sonographic Samano sign: Absent. Pancreas Normal as visualized. Spleen Splenomegaly: Upper limits of normal Craniocaudal length: 11.0 cm. Right kidney: Normal. Hydronephrosis: None. Size: 10.1 cm x 5.0 cm x 4.9 cm Left kidney: Normal. Hydronephrosis: None. Size: 10.4 cm x 5.9 cm x 5.0 cm. Abdominal aorta and IVC Visualized portions are normal. Ascites: Perihepatic ascites. Small right pleural effusion. US/US abdomen complete* [id number] IMPRESSION: 1. Coarse hepatic echotexture with cirrhotic configuration to the liver. 2. Small amount of perihepatic ascites. Small right pleural effusion. 3. Echogenic 2.3 x 1.8 cm lesion right hepatic lobe is nonspecific in a cirrho tic liver and differential considerations include dysplastic nodule versus cave rnous hemangiom.Recommend further evaluation with triphasic liver CT for better anatomic detail. 4. No hydronephrosis in right kidney. 5. Gallbladder sludge with sludge ball. Normal common bile duct. 6. Spleen size upper limits of normal.
== END 2021-11-24 06:41 | disposition home or self-care (01) ==
LOC: RAD 06:42
PROVIDERS: PCP Family Medicine; Visit Provider Internal Medicine Hematology & Oncology
DX: R17 Unspecified jaundice (principal); R18.8 Other ascites
CPT/HCPCS: 76700

== ENCOUNTER → 2021-12-08 08:48 | Outpatient (BNVA) | payer MEDICARE, BC, SELFPAY | PROVIDERS: PCP Family Medicine; Visit Provider Family Medicine | DX: R60.1 Generalized edema (principal) | CPT/HCPCS: 80048 ==

== ENCOUNTER 2021-12-10 10:52 | Outpatient (CLI) | payer MEDICARE, BC, SELFPAY ==
[2021-12-10 11:32] LABS: Basophils # 0.1 10^3/uL (0.0-0.1); Basophils % 1.2 %; Eosinophils # 0.2 10^3/uL (0.0-0.8); Eosinophils % 4.9 %; Hematocrit 38.7 % (37.0-47.0); Hemoglobin 12.1 g/dL (11.5-15.3); Lymphocytes # 1.2 10^3/uL (0.8-4.8); Lymphocytes % 30.3 %; Mean Corpuscular HGB Conc 31.3 g/dL (30.0-36.0); Mean Corpuscular Hemoglobin 30.9 pg (28.0-34.0); Mean Corpuscular Volume 98.7 fl (81-99); Mean Platelet Volume 10.7 fL (7.4-10.4); Monocytes # 0.5 10^3/uL (0.2-0.9); Monocytes % 12.7 %; Neutrophils # 2.07 10^3/uL (1.8-7.7); Neutrophils % 50.7 %; Nucleated Red Blood Cells % 0 %; Platelet Count 99 10^3/cmm (130-400); Red Blood Count 3.92 10^6/uL (4.1-5.3); Red Cell Distribution Width 13.8 % (12.1-15.1); White Blood Count 4.1 10^3/uL (4.0-10.0)
[2021-12-10 11:59] LABS: Alanine Aminotransferase 15 U/L (0-33); Albumin Level 2.8 g/dL (3.5-5.2); Alkaline Phosphatase 122 IU/L (35-105); Anion Gap 13.1 (5-19); Aspartate Amino Transferase 33 U/L (0-32); Blood Urea Nitrogen 8 mg/dL (8-23); Calcium 8.2 mg/dL (8.5-10.5); Carbon Dioxide 27 mmol/L (22-29); Chloride 105 mmol/L (98-107); Globulin 3.7 g/dL (1.3-4.6); Glomerular Filtration Rate 123.1 mL/min (90-130); Glucose 122 mg/dL (65-115); Osmolality Calculated 292 mOsm/kg (285-295); Potassium 4.1 mmol/L (3.5-5.1); Sodium 141 mmol/L (136-145); Total Bilirubin 1.2 mg/dL (0.15-1.2); Total Protein 6.5 g/dL (6.6-8.7)
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
== END 2021-12-10 10:53 | disposition home or self-care (01) ==
LOC: ONCMED 10:58
PROVIDERS: PCP Family Medicine; Visit Provider Internal Medicine Hematology & Oncology
DX: D69.6 Thrombocytopenia, unspecified (principal); I48.92 Unspecified atrial flutter; E11.9 Type 2 diabetes mellitus without complications; Z79.84 Long term (current) use of oral hypoglycemic drugs; I10 Essential (primary) hypertension; M19.90 Unspecified osteoarthritis, unspecified site
CPT/HCPCS: 36415; 80053; 85025; 99214

== ENCOUNTER → 2021-12-15 13:05 | Outpatient (BNVA) | payer MEDICARE, BC, SELFPAY | PROVIDERS: PCP Family Medicine; Referring Provider Surgery Surgical Critical Care; Visit Provider Internal Medicine | DX: M81.0 Age-related osteoporosis without current pathological fracture (principal); R60.9 Edema, unspecified | CPT/HCPCS: 99204 ==

== ENCOUNTER 2021-12-15 14:31 | Outpatient (CLI) | payer OTHER, SELFPAY ==
[2021-12-15 15:43] LABS: Alanine Aminotransferase 19 U/L (0-33); Albumin Level 3.1 g/dL (3.5-5.2); Alkaline Phosphatase 149 IU/L (35-105); Aspartate Amino Transferase 38 U/L (0-32); Blood Urea Nitrogen 8 mg/dL (8-23); Calcium 8.5 mg/dL (8.5-10.5); Carbon Dioxide 31 mmol/L (22-29); Chloride 98 mmol/L (98-107); Free T4 Free Thyroxine 1.02 ng/dL (0.82-1.77); Glomerular Filtration Rate 122.7 mL/min (90-130); Glucose 140 mg/dL (65-115); Osmolality Calculated 287 mOsm/kg (285-295); Sodium 138 mmol/L (136-145); Thyroid Stimulating Hormone 2.43 uIU/mL (0.27-4.20); Total Bilirubin 1.3 mg/dL (0.15-1.2); Total Protein 7.1 g/dL (6.6-8.7)
[2021-12-15 15:44] LABS: Calcium 8.4 mg/dL (8.5-10.5)
[2021-12-15 15:52] LABS: Parathyroid Hormone 30.2 pg/mL (15-65)
[2021-12-15 16:02] LABS: 25 Hydroxy Vitamin D 34 ng/mL (30-100)
== END 2021-12-15 14:32 | disposition home or self-care (01) ==
LOC: LAB 14:44
PROVIDERS: PCP Family Medicine; Visit Provider Internal Medicine
DX: M81.0 Age-related osteoporosis without current pathological fracture (principal)
CPT/HCPCS: 80053; 82306; 82310; 83970; 84439; 84443

== ENCOUNTER 2021-12-25 09:54 | Outpatient (CLI) | payer MEDICARE, BC, SELFPAY ==
[2021-12-25 11:37] LABS: Blood Urea Nitrogen 8 mg/dL (8-23); Calcium 9.2 mg/dL (8.5-10.5); Carbon Dioxide 24 mmol/L (22-29); Chloride 103 mmol/L (98-107); Glomerular Filtration Rate 158.7 mL/min (90-130); Glucose 112 mg/dL (65-115); Osmolality Calculated 283 mOsm/kg (285-295); Sodium 137 mmol/L (136-145)
== END 2021-12-25 09:55 | disposition home or self-care (01) ==
LOC: LAB 10:11
PROVIDERS: PCP Family Medicine; Visit Provider Internal Medicine
DX: M81.0 Age-related osteoporosis without current pathological fracture (principal)
CPT/HCPCS: 80048

== ENCOUNTER → 2021-12-29 12:20 | Outpatient (BNVA) | payer MEDICARE, BC, SELFPAY | PROVIDERS: PCP Family Medicine; Visit Provider Family Medicine | DX: R35.0 Frequency of micturition (principal) | CPT/HCPCS: 81000; 87086 ==

== ENCOUNTER 2022-01-13 11:25 | Outpatient (CLI) | payer OTHER, SELFPAY ==
--- NOTE | 2022-01-13 11:29 | MR_ITS ---
WS: [id number] MRI RIGHT SHOULDER HISTORY: R SHOULDER STRAIN COMPARISON: None available. TECHNIQUE: Multiplanar sequences of the shoulder joint are submitted. Study is significantly limited by motion artifact and breathing artifact. Patient was unable to remai n still for this examination. Severe AC joint arthritis. Osteophytes encroach upon the rotator cuff just medial to the humeral head . There is increase fluid along the AC ligament. Severe narrowing of the AC joint. Small amount of fl uid in the subacromial and subdeltoid bursa. No os acromion. Biceps tendon is partially displaced fro m the bicipital groove. Biceps tendon is very small caliber with abnormal signal. Abnormal signal in the distal infraspinatus tendon is more likely due to severe tendinopathy and exte nds completely through the tendon without retraction. Tiny insertion site tear nuclear surface is lik manju. Supraspinatus tendon is small caliber and displaced by the AC joint arthritis. Tendinopathy and a tiny insertion site tear. No retraction of the tendon. Subscapularis tendon is thinned and small ca liber but not completely torn. Multiple cystic changes along the humeral head with loss of the cartil age. Abnormal signal in the superior labrum. Mild atrophy of the supraspinatus muscle. MR/MR shoulder RT wo con* [id number] IMPRESSION: 1. Quality of this examination is significantly degraded by patient motion and breathing. Patient was unable to remain still for this examination. 2. Severe AC joint arthritis with encroachment upon the supraspinatus muscle a nd tendon. 3. Advanced tendinopathy in the distal supraspinatus and infraspinatus tendons . Small insertion site tears are also present. No tendon retraction. 4. Mild atrophy supraspinatus muscle. 5. Superior labral tear. 6. Partially subluxed biceps tendon.
== END 2022-01-13 11:26 | disposition home or self-care (01) ==
LOC: RAD 11:27
PROVIDERS: PCP Family Medicine; Visit Provider Physical Medicine & Rehabilitation
DX: S46.911A Strain of unspecified muscle, fascia and tendon at shoulder and upper arm level, right arm, initial encounter (principal); S43.431A Superior glenoid labrum lesion of right shoulder, initial encounter; X58.XXXA Exposure to other specified factors, initial encounter; M19.011 Primary osteoarthritis, right shoulder
CPT/HCPCS: 73221

== ENCOUNTER 2022-02-15 08:24 | Outpatient (CLI) | payer MEDICARE, BC, SELFPAY ==
--- NOTE | 2022-02-15 09:00 | XR_ITS ---
WS: [id number] SCREENING DEXA SCAN [employer] CLINICAL INFORMATION: Bone density check COMPARISON: 6 ,015 FINDINGS: The L1-L4 bone mineral density measures 1.293 g/cm2. This corresponds to a T score score of 0.9 and Z score of 2.1. Left femoral neck bone mineral density measures 0.797 g/cm2. This corresponds to a T score of -1.7 an d Z score of -0.7. Right femoral neck bone mineral density measures 0.798 g/cm2. This corresponds to a T score -1.7of an d Z score of -0.7. Mean femoral neck bone mineral density measures 0.797 g/cm2. This corresponds to a T score of -1.7 an d Z score of -0.7. XR/XR DEXA axial skeleton* [id number] IMPRESSION: Normal bone mineralization lumbar spine. Osteopenia in the femoral necks. Patient's FRAX calculated 10 year probability for major osteoporotic fracture i s 24.5 % and osteoporotic hip fracture is 6.6%.
== END 2022-02-15 08:25 | disposition home or self-care (01) ==
PROVIDERS: PCP Family Medicine; Visit Provider Internal Medicine
DX: M81.0 Age-related osteoporosis without current pathological fracture (principal); M85.80 Other specified disorders of bone density and structure, unspecified site
CPT/HCPCS: 77080

== ENCOUNTER → 2022-03-11 12:56 | Outpatient (BNVA) | payer MEDICARE, BC, SELFPAY | PROVIDERS: PCP Family Medicine; Visit Provider Internal Medicine | DX: M81.0 Age-related osteoporosis without current pathological fracture (principal); R60.1 Generalized edema | CPT/HCPCS: 99214 ==

== ENCOUNTER → 2022-03-16 08:30 | Outpatient (BNVA) | payer MEDICARE, BC, SELFPAY | PROVIDERS: PCP Family Medicine; Visit Provider Family Medicine | DX: R60.9 Edema, unspecified (principal); R60.1 Generalized edema; E78.5 Hyperlipidemia, unspecified; E11.9 Type 2 diabetes mellitus without complications; I73.9 Peripheral vascular disease, unspecified; K75.81 Nonalcoholic steatohepatitis (NASH); Z98.890 Other specified postprocedural states; Z12.31 Encounter for screening mammogram for malignant neoplasm of breast | CPT/HCPCS: 85025 ==

== ENCOUNTER 2022-03-17 10:42 | Outpatient (CLI) | payer MEDICARE, BC, SELFPAY ==
[2022-03-17 11:46] LABS: Basophils # 0.1 10^3/uL (0.0-0.1); Basophils % 1.6 %; Eosinophils # 0.2 10^3/uL (0.0-0.8); Hematocrit 39.3 % (37.0-47.0); Hemoglobin 12.8 g/dL (11.5-15.3); Lymphocytes # 1.3 10^3/uL (0.8-4.8); Lymphocytes % 29.5 %; Mean Corpuscular HGB Conc 32.6 g/dL (30.0-36.0); Mean Corpuscular Hemoglobin 31.9 pg (28.0-34.0); Mean Platelet Volume 10.3 fL (7.4-10.4); Monocytes # 0.6 10^3/uL (0.2-0.9); Monocytes % 13.4 %; Neutrophils # 2.29 10^3/uL (1.8-7.7); Neutrophils % 51.3 %; Nucleated Red Blood Cells % 0 %; Platelet Count 111 10^3/cmm (130-400); Red Blood Count 4.01 10^6/uL (4.1-5.3); Red Cell Distribution Width 13.7 % (12.1-15.1); White Blood Count 4.5 10^3/uL (4.0-10.0)
[2022-03-17 12:48] LABS: Alanine Aminotransferase 23 U/L (0-33); Albumin Level 3.5 g/dL (3.5-5.2); Alkaline Phosphatase 105 IU/L (35-105); Anion Gap 13.9 (5-19); Aspartate Amino Transferase 37 U/L (0-32); Blood Urea Nitrogen 13 mg/dL (8-23); Calcium 9.5 mg/dL (8.5-10.5); Carbon Dioxide 28 mmol/L (22-29); Chloride 99 mmol/L (98-107); Chol HDL Ratio 3.03 mg/dL (0.0-4.40); Cholesterol 100 mg/dL (0-200); Globulin 3.2 g/dL (1.3-4.6); Glomerular Filtration Rate 99.4 mL/min (90-130); Glucose 123 mg/dL (65-115); HDL Cholesterol 33 mg/dL (60-100); LDL Cholesterol Calculated 51 mg/dL (50-129); LDL HDL Ratio 1.55 RATIO (0.00-3.22); Osmolality Calculated 285 mOsm/kg (285-295); Potassium 3.9 mmol/L (3.5-5.1); Sodium 137 mmol/L (136-145); Total Bilirubin 1.3 mg/dL (0.15-1.2); Total Protein 6.7 g/dL (6.6-8.7); Triglycerides 79 mg/dL (0-150)
[2022-03-17 12:52] LABS: Estmated Average Glucose 169; Hemoglobin A1C 7.5 % (4.0-6.0)
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
== END 2022-03-17 10:43 | disposition home or self-care (01) ==
PROVIDERS: PCP Family Medicine; Visit Provider Internal Medicine Hematology & Oncology
DX: D69.6 Thrombocytopenia, unspecified (principal); K74.60 Unspecified cirrhosis of liver; R16.1 Splenomegaly, not elsewhere classified; I48.0 Paroxysmal atrial fibrillation; E11.9 Type 2 diabetes mellitus without complications; I10 Essential (primary) hypertension; M19.90 Unspecified osteoarthritis, unspecified site
CPT/HCPCS: 36415; 80053; 80061; 83036; 85025; 99214

== ENCOUNTER 2022-04-16 08:23 | Outpatient (CLI) | payer MEDICARE, BC, SELFPAY ==
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
== END 2022-04-16 08:24 | disposition home or self-care (01) ==
PROVIDERS: PCP Family Medicine; Visit Provider Family Medicine
DX: Z12.31 Encounter for screening mammogram for malignant neoplasm of breast (principal)
CPT/HCPCS: 77063; 77067

== ENCOUNTER 2022-04-19 08:59 | Outpatient (CLI) | payer MEDICARE, BC, SELFPAY ==
--- NOTE | 2022-04-19 09:30 | USCV_ITS ---
Kasey Vidal Age: 66 Gender: F : 1955 Exam Date: 04/19/2022 09:45 Ordering Phys: Blaire Antnoio DO Technologist: Exam Location: [facility] [place] Indication: pad RIGHT LEFT Brachial 125.00 mmHg Brachial 125.00 mmHg Pressure (mmHg) Waveform Pressure (mmHg) Waveform 148.00 Above Knee 162.00 154.00 Below Knee 119.00 142.00 HOME ORGANIZER 123.00 139.00 DPA 131.00 1.10 Ankle/Brachial Index 1.00 132.00 Pre-Exercise Toe Pressure 107.00 1.00 Pre-Exercise Toe/Brachial Index 0.86 FINDINGS Resting KOLBY of 1.1 on the right and 1.0 on the left Resting TBI 1.0 on the right and 0.86 in the left Low amplitude PVR waveforms in the left ankle. Otherwise unremarkable CONCLUSIONS 1. Normal resting KOLBY and TBI bilaterally suggesting no significant arterial obstruction. 2. Abnormal PVR waveform at the left ankle, possibly due to technical issues. Dr Elana Brito MD [facility] (Electronically Signed) Final Date: 19 Apr 2022 18:55 S
== END 2022-04-19 09:00 | disposition home or self-care (01) ==
LOC: RAD 09:01
PROVIDERS: PCP Family Medicine; Visit Provider Family Medicine
DX: I73.9 Peripheral vascular disease, unspecified (principal)
CPT/HCPCS: 93923

== ENCOUNTER → 2022-06-01 13:59 | Outpatient (BNVA) | payer MEDICARE, BC, SELFPAY | PROVIDERS: PCP Family Medicine; Visit Provider Internal Medicine | DX: E11.9 Type 2 diabetes mellitus without complications (principal); K74.60 Unspecified cirrhosis of liver; M81.0 Age-related osteoporosis without current pathological fracture; Z79.84 Long term (current) use of oral hypoglycemic drugs | CPT/HCPCS: 99214 ==

== ENCOUNTER → 2022-06-15 10:23 | Outpatient (BNVA) | payer MEDICARE, BC, SELFPAY | PROVIDERS: PCP Family Medicine; Visit Provider Family Medicine | DX: R60.0 Localized edema (principal); R60.1 Generalized edema; F41.8 Other specified anxiety disorders | CPT/HCPCS: 80048 ==

== ENCOUNTER → 2022-08-04 13:43 | Outpatient (BNVA) | payer MEDICARE, BC, SELFPAY | PROVIDERS: PCP Family Medicine; Visit Provider Internal Medicine | DX: E11.65 Type 2 diabetes mellitus with hyperglycemia (principal); M81.0 Age-related osteoporosis without current pathological fracture; R60.1 Generalized edema; K74.69 Other cirrhosis of liver; Z79.84 Long term (current) use of oral hypoglycemic drugs; Z79.4 Long term (current) use of insulin | CPT/HCPCS: 99214 ==

== ENCOUNTER → 2022-10-18 09:27 | Outpatient (BNVA) | payer MEDICARE, BC, SELFPAY | PROVIDERS: PCP Family Medicine; Visit Provider Internal Medicine | DX: E11.65 Type 2 diabetes mellitus with hyperglycemia (principal) | CPT/HCPCS: 80048; 80061; 83036 ==

== ENCOUNTER → 2022-10-25 14:15 | Outpatient (BNVA) | payer MEDICARE, BC, SELFPAY | PROVIDERS: PCP Family Medicine; Visit Provider Internal Medicine | DX: E11.65 Type 2 diabetes mellitus with hyperglycemia (principal); E78.5 Hyperlipidemia, unspecified; I10 Essential (primary) hypertension; M81.0 Age-related osteoporosis without current pathological fracture; Z79.4 Long term (current) use of insulin | CPT/HCPCS: 99214 ==

== ENCOUNTER 2022-11-16 21:31 | Inpatient (IN) | payer MEDICARE, BC, SELFPAY ==
--- NOTE | 2022-11-16 21:38 | XRR_ITS ---
PROCEDURE INFORMATION: Exam: XR Chest Exam date and time: 11/16/2022 9:56 PM Age: 66 years old Clinical indication: Prior surgery; Surgery type: Thoracic fusion; Patient HX: Fever with general weakness TECHNIQUE: Imaging protocol: Radiologic exam of the chest. Views: 1 view. COMPARISON: CR XR chest 1V portable [id number] 09/16/2021 6:44 AM FINDINGS: Lungs: There is a subtle hazy opacity in the right lung base which could be an infiltrate or atelectasis. The lungs are otherwise clear. Pleural spaces: Previously seen pleural effusions have resolved. Heart/Mediastinum: Unremarkable. No cardiomegaly. Bones/joints: Thoracic metallic fusion. XR/XR chest 1V portable [id number] IMPRESSION: Subtle right basilar hazy opacity. Atelectasis versus infiltrate
--- NOTE | 2022-11-16 21:46 | ED_ITS ---
HPI - General Adult General: Chief complaint: Fever Stated complaint: lethargic,fever Time Seen by Provider: 11/16/22 21:43 Source: patient Mode of arrival: ambulatory Limitations: no limitations History of Present Illness: 66-year-old female who states that she has been having fever along with generalized weakness and fatigue over the last 2 days she is seen by her PCP today diagnosed with UTI start Macrobid but states tonight her fever returned she has become lethargic states she just feels very w eak she was hypotensive and triage she denies any pain denies any vomiting denies any diarrhea Associated symptoms: Deny chest pain, dyspnea, headache(s), nausea, rash or vomiting Review of Systems Const: Reports: fever(s), chills and fatigue Eyes: Denies: blurry vision or eye discomfort ENMT: Denies: throat pain or dental pain Card: Denies: chest pain Resp: Denies: dyspnea GI: Denies: abdominal pain, nausea, vomiting or diarrhea : Reports: dysuria Musc: Denies: neck pain or back pain Skin/Breast: Denies: rash Neuro: Denies: headache(s) Psych: Denies: depression Lionel/Lymph: Denies: easy bruising All/Imm: Denies: urticaria PFSH ED PFSH: Medical History (Updated 11/16/22 @ 23:48 by Cornell Sheridan MD) Anxiety with depression Atrial flutter Cirrhosis laura DDD (degenerative disc disease), lumbar Diabetic neuropathy Dyslipidemia Essential (primary) hypertension Hesitancy of micturition History of 2019 novel coronavirus disease (COVID-19) Left rib fracture Obstructive sleep apnea Right rib fracture T6 vertebral fracture T7 vertebral fracture Thrombocytopenia History of hematology evaluation with 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 Blair 2014 Family History Other Diabetes Heart disease Osteoporosis Social History Smoking and tobacco status: never smoked Second hand smoke exposure: No Smoking risk assessment/counseling performed?: No Alcohol intake: never Desire information about alcohol rehabilitation?: No Counseling given: No Desire information about substance/drug rehabilitation?: No Counseling given: No Adopted: No Caregiver/support person: No Lives independently: Yes Housing: House Marital status: / Number of children: 2 service: No Current occupational status: employed Current occupation: [employer] History of recent travel: No Current gender identity: Female Physical Exam Const: COMMON NORMALS: patient oriented x3 GENERAL APPEARANCE: ill appearing HENMT: COMMON NORMALS: normocephalic and atraumatic HEAD & SCALP: normocephalic and atraumatic Eye: COMMON NORMALS: Equal, round and reactive pupils present and EOMs intact bilaterally PUPIL: Yes Equal, round and reactive pupils present Neck/C-Spine: COMMON NORMALS: full ROM and supple Chest: COMMONS NORMALS: normal inspection of the chest and normal palpation of entire chest wall Resp: COMMON NORMALS: normal respiratory effort, No retractions, No use of accessory muscles and clear to auscultation bilaterally AUSCULTATION: clear to auscultation bilaterally Cardio: COMMON NORMALS: regular rate, regular rhythm and No murmurs present (Cardio) RATE: regular rate RHYTHM: regular rhythm GI: COMMON NORMALS: Normal to inspection, nondistended, normoactive bowel sounds present, Soft to palpation, non-tender and no masses PALPATION: Yes Soft to palpation Extremity: COMMON NORMALS: normal to inspection and full ROM Neuro: COMMON NORMALS: patient oriented x3, moves all extremities and no focal motor deficits Psych: COMMON NORMALS: mental status grossly normal, Normal thought process present and cooperative THOUGHT PROCESS: Normal thought process present Skin: COMMON NORMALS: no rashes or lesions noted and no wounds GENERAL SKIN EXAM: no rashes or lesions noted Course Vital Signs: Vital signs: Vital Signs Temperature 99.2 F 11/16/22 23:00 Pulse Rate 95 11/16/22 23:39 Respiratory Rate 23 H 11/16/22 23:39 Blood Pressure 90/48 11/16/22 23:39 Pulse Oximetry 94 11/16/22 23:39 Oxygen Delivery Me thod 11/16/22 21:47 MDM - General Adult Medical Decision Making Patient presents here with sepsis likely from urinary tract infection patient's blood pressure has improved here with IV fluids she does have an elevated lactate level hyponatremia spoke to hospitalist will admit to ICU at this time. Lab Data 11/16/22 21:57 11/16/22 21:57 Radiology Impressions Chest X-Ray 11/16/22 21:38 IMPRESSION: Subtle right basilar hazy opacity. Atelectasis versus infiltrate Laboratory Results WBC 15.2 10^3/uL (4.0-10.0) H 11/16/22 21:57 RBC 3.84 10^6/uL (4.1-5.3) L 11/16/22 21:57 Hgb 10.8 g/dL (11.5-15.3) L 11/16/22 21:57 Hct 33.2 % (37.0-47.0) L 11/16/22 21:57 MCV 86.5 fl (81-99) 11/16/22 21:57 MCH 28.1 pg (28.0-34.0) 11/16/22 21:57 MCHC 32.5 g/dL (30.0-36.0) 11/16/22 21:57 RDW 17.5 % (12.1-15.1) H 11/16/22 21:57 Plt Count 98 10^3/cmm (130-400) L 11/16/22 21:57 MPV 10.6 fL (7.4-10.4) H 11/16/22 21:57 Neut % (Auto) 85.1 % 11/16/22 21:57 Lymph % (Auto) 3.0 % 11/16/22 21:57 Orange % (Auto) 7.4 % 11/16/22 21:57 Eos % (Auto) 0.8 % 11/16/22 21:57 Baso % (Auto) 0.3 % 11/16/22 21:57 Neut # (Auto) 12.94 10^3/uL (1.8-7.7) H 11/16/22 21:57 Lymph # (Auto) 0.5 10^3/uL (0.8-4.8) L 11/16/22 21:57 Orange # (Auto) 1.1 10^3/uL (0.2-0.9) H 11/16/22 21:57 Eos # (Auto) 0.1 10^3/uL (0.0-0.8) 11/16/22 21:57 Baso # (Auto) 0.1 10^3/uL (0.0-0.1) 11/16/22 21:57 Nucleated RBC % (auto) 0 % 11/16/22 21:57 Nucleated RBCs # 0.0 /100WBC 11/16/22 21:57 PT 27.50 SECONDS (12.1-14.9) H 11/16/22 21:57 INR 2.53 (0.8-1.2) H 11/16/22 21:57 Sodium 124 mmol/L (136-145) L 11/16/22 21:57 Potassium 4.2 mmol/L (3.5-5.1) 11/16/22 21:57 Chloride 91 mmol/L (98-107) L 11/16/22 21:57 Carbon Dioxide 21 mmol/L (22-29) L 11/16/22 21:57 Anion Gap 16.2 (5-19) 11/16/22 21:57 BUN 25 mg/dL (8-23) H 11/16/22 21:57 Creatinine 1.3 mg/dL (0.5-0.9) H 11/16/22 21:57 GFR Calculation 40.7 mL/min (90-130) L 11/16/22 21:57 Glucose 185 mg/dL (65-115) H 11/16/22 21:57 Calculated Osmolality 267 mOsm/kg (285-295) L 11/16/22 21:57 Lactate 3.8 mmol/L (0.5-2.2) H 11/16/22 21:57 Calcium 8.8 mg/dL (8.5-10.5) 11/16/22 21:57 Total Bilirubin 2.3 mg/dL (0.15-1.2) H 11/16/22 21:57 AST 33 U/L (0-32) H 11/16/22 21:57 ALT 25 U/L (0-33) 11/16/22 21:57 Alkaline Phosphatase 141 U/L (35-105) H 11/16/22 21:57 Total Protein 6.7 g/dL (6.6-8.7) 11/16/22 21:57 Albumin 2.9 g/dL (3.5-5.2) L 11/16/22 21:57 Globulin 3.8 g/dL (1.3-4.6) 11/16/22 21:57 Influenza Type A Ag negative (Negative) 11/16/22 21:50 Influenza Type B Ag negative (Negative) 11/16/22 21:50 Critical Care Time Critical Care Time: Critical Care Time: Yes Total Critical Care Time: 45 Attestation: The high probability of a clinically significant, sudden or life threatening deterioration of the patient's cv system(s) required my full and direct attention, intervention and personal management. The critical care time is as shown. This time is in addition to time spent performing any reported procedures but includes the following: [x] Data and vital sign review and interpretation [x] Patient assessment, examination and intervention [x] Documentation [x] Medication orders and management Discharge Plan Discharge Patient Disposition: Admitted As Inpatient Admit Provider: Barbara Bush Clinical Impression: Acute cystitis, Sepsis, Acute hyponatremia Condition: Stable Coding Level of Care Code ED Customer Solutions Specialist for Chg Fwd Exam Comprehensive
[2022-11-16 21:47] VITALS: BP 79/45; PULSE 128; RESP 20; TEMP 39.1; O2SAT 96; BMI 30.6
[2022-11-16] MEDS: cefTRIAXone 1,000 MG in sodium chloride 0.9% (plus) 50 ML 100 MG IV (21:57)
[2022-11-16] MEDS: sodium chloride 0.9% 1,000 ML 999 ML IV ×2 (21:57)
[2022-11-16 22:00] VITALS: BP 101/48; PULSE 110; RESP 20; O2SAT 95
[2022-11-16 22:09] LABS: Basophils # 0.1 10^3/uL (0.0-0.1); Basophils % 0.3 %; Eosinophils # 0.1 10^3/uL (0.0-0.8); Eosinophils % 0.8 %; Hematocrit 33.2 % (37.0-47.0); Hemoglobin 10.8 g/dL (11.5-15.3); Lymphocytes # 0.5 10^3/uL (0.8-4.8); Mean Corpuscular HGB Conc 32.5 g/dL (30.0-36.0); Mean Corpuscular Hemoglobin 28.1 pg (28.0-34.0); Mean Corpuscular Volume 86.5 fl (81-99); Mean Platelet Volume 10.6 fL (7.4-10.4); Monocytes # 1.1 10^3/uL (0.2-0.9); Monocytes % 7.4 %; Neutrophils # 12.94 10^3/uL (1.8-7.7); Neutrophils % 85.1 %; Nucleated Red Blood Cells % 0 %; Platelet Count 98 10^3/cmm (130-400); Red Blood Count 3.84 10^6/uL (4.1-5.3); Red Cell Distribution Width 17.5 % (12.1-15.1); White Blood Count 15.2 10^3/uL (4.0-10.0)
[2022-11-16] MEDS: acetaminophen 500 mg Tablet 1000 MG PO (22:17)
[2022-11-16 22:27] LABS: INR 2.53 (0.8-1.2)
[2022-11-16 22:30] VITALS: BP 81/41; PULSE 98; RESP 20; O2SAT 95
[2022-11-16 22:33] LABS: Alanine Aminotransferase 25 U/L (0-33); Albumin Level 2.9 g/dL (3.5-5.2); Alkaline Phosphatase 141 U/L (35-105); Anion Gap 16.2 (5-19); Aspartate Amino Transferase 33 U/L (0-32); Blood Urea Nitrogen 25 mg/dL (8-23); Calcium 8.8 mg/dL (8.5-10.5); Carbon Dioxide 21 mmol/L (22-29); Chloride 91 mmol/L (98-107); Globulin 3.8 g/dL (1.3-4.6); Glomerular Filtration Rate 40.7 mL/min (90-130); Glucose 185 mg/dL (65-115); Osmolality Calculated 267 mOsm/kg (285-295); Potassium 4.2 mmol/L (3.5-5.1); Sodium 124 mmol/L (136-145); Total Bilirubin 2.3 mg/dL (0.15-1.2); Total Protein 6.7 g/dL (6.6-8.7)
[2022-11-16 22:33] LABS: Influenza A by IFA negative (Negative); Influenza B by IFA negative (Negative)
[2022-11-16 22:34] LABS: Lactate (Lactic Acid level) 3.8 mmol/L (0.5-2.2)
[2022-11-16 22:43] LABS: Slide Review Slide Review Perform
[2022-11-16] MEDS: azithromycin 500 MG in sodium chloride 0.9% 250 ML 250 MG IV (22:50)
[2022-11-16 23:00] VITALS: BP 94/52; PULSE 92; RESP 21; TEMP 37.3; O2SAT 95
--- NOTE | 2022-11-16 23:08 | PM.HP ---
Providers/Chief Complaint Primary Care Provider: Blaire Antonio DO Chief Complaint: lethargic,fever History of Present Illness Kasey Vidal is a 66 year old female who was seen at Dr. Antonio's clinic for UTI related symptoms she was prescribed Bactrim however because of worsening of fatigue, fever she decided to come to the hospital for further evaluation peer in the ER she has been diagnosed sepsis related to UTI, hyponatremia, LULU. He received septic bolus along antibiotics, blood culture and lactic acid requested, I have requested urine culture. Her UA is pending. Chest x-ray does not show typical consolidation. She has received ceftriaxone and azithromycin in the ER Patient is stating that 7 to 10 days ago her symptoms started with a sore throat which improved over the period of time however she has been experiencing dry hacking cough and then around Tuesday last week she started experiencing urine frequency, dysuria. She does not have any history of chronic UTIs. She is compliant with her medications. She carries history of liver cirrhosis, it is associated to BRITTON, her blood pressure has been a challenge to improve hence nadolol has been discontinued. Review of Systems Const: Reports: fever(s), chills, body aches and fatigue Eyes: Denies: change in vision ENMT: Denies: throat pain Card: Denies: chest pain Resp: Reports: dyspnea GI: Reports: nausea : Reports: flank pain Musc: Denies: neck pain Skin/Breast: Denies: rash Neuro: Denies: headache(s) Psych: Reports: anxiety Endo: Denies: polyuria Lionel/Lymph: Denies: easy bruising All/Imm: Denies: urticaria Medications/Allergies Home Medications Medication Instructions Recorded Confirmed Last Taken Type oxycodone 5 mg tablet 5 mg PO Q4H PRN pain 7 days #42 09/15/21 11/16/22 09/15/21 22:00 Rx tabs acetaminophen 500 mg tablet 1,000 mg PO Q4H PRN Pain 09/16/21 11/16/22 Unknown History multivitamin with minerals-folic 2 tab PO QAM 09/16/21 11/16/22 Unknown History acid 200 mcg chewable tablet (Adult Multivitamin Gummies) calcium carbonate 500 mg calcium 500 mg PO DAILY 12/21/21 11/16/22 Unknown History (1,250 mg) chewable tablet (Calcium 500) cholecalciferol (vitamin D3) 25 25 mcg PO DAILY 12/21/21 11/16/22 Unknown History mcg (1,000 unit) capsule apixaban 5 mg tablet (Eliquis) 5 mg PO BID 90 days #180 tabs 03/16/22 11/16/22 Unknown Rx duloxetine 30 mg capsule,delayed 30 mg PO QAM 90 days #90 caps 06/15/22 11/16/22 Unknown Rx release tamsulosin 0.4 mg capsule See Rx Instructions .Route 06/15/22 11/16/22 Unknown Rx .COMPLEX #90 caps metoprolol tartrate 25 mg tablet 25 mg PO BID #180 tabs 07/15/22 11/16/22 Unknown Rx furosemide 20 mg tablet (Lasix) 40 mg PO QAM 08/04/22 11/16/22 Unknown History spironolactone 50 mg tablet 100 mg PO QAM 08/04/22 11/16/22 Unknown History (Aldactone) alendronate 70 mg tablet (Fosamax) 70 mg PO .weekly #14 tabs 08/05/22 11/16/22 Unknown Rx pen needle, diabetic 33 gauge x #100 ea 08/05/22 11/16/22 Unknown Rx 5/32 (Comfort EZ Pen [place]) semaglutide 1 mg/dose (4 mg/3 mL) 1 mg (0.75 mL) SUBCUT Q7D 1 month 08/05/22 11/16/22 Unknown Rx subcutaneous pen injector (Ozempic) #3.75 mL insulin glargine 100 unit/mL (3 20 unit (0.2 mL) SUBCUT QAM 90 08/06/22 11/16/22 Unknown Rx mL) subcutaneous pen (Lantus days #18 mL Solostar U-100 Insulin) atorvastatin 20 mg tablet See Rx Instructions .Route 10/12/22 11/16/22 Unknown Rx .COMPLEX #90 tabs nitrofurantoin 100 mg PO BID #20 caps 11/16/22 11/16/22 Unknown Rx monohydrate/macrocrystals 100 mg capsule (Macrobid) Allergies Allergy/AdvReac Type Severity Reaction Status Date / Time ibuprofen Allergy ALGY-Rash Verified 11/16/22 12:44 PFSH Acute PFSH: Medical History (Updated 11/16/22 @ 23:47 by Barbara Bush MD) Anxiety with depression Atrial flutter Cirrhosis britton DDD (degenerative disc disease), lumbar Diabetic neuropathy Dyslipidemia Essential (primary) hypertension Hesitancy of micturition History of 2019 novel coronavirus disease (COVID-19) Left rib fracture Obstructive sleep apnea Right rib fracture T6 vertebral fracture T7 vertebral fracture Thrombocytopenia History of hematology evaluation with 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 Blair 2014 Family History Other Diabetes Heart disease Osteoporosis Social History Smoking and tobacco status: never smoked Second hand smoke exposure: No Smoking risk assessment/counseling performed?: No Alcohol intake: never Desire information about alcohol rehabilitation?: No Counseling given: No Desire information about substance/drug rehabilitation?: No Counseling given: No Adopted: No Caregiver/support person: No Lives independently: Yes Housing: House Marital status: / Number of children: 2 service: No Current occupational status: employed Current occupation: [employer] History of recent travel: No Current gender identity: Female Vitals/I&O/Wt Last Vital Signs Temp 99.2 F 11/16/22 23:00 Pulse 92 11/16/22 23:00 Resp 21 H 11/16/22 23:00 BP 94/52 11/16/22 23:00 Pulse Ox 95 11/16/22 23:00 O2 Del Method 11/16/22 21:47 Weight last 48 hrs Weight 78.471 kg Physical Exam Narrative: female Currently not in any distress Doing well on room air S1, S2 Abdomen soft, No audible stridor or wheezing Nonfocal neuro exam Pleasant and cooperative Appropriate mood and affect No sign of cellulitis Hypotensive getting IV fluids at the bedside Sepsis alert exam Normal capillary refill No sign of encephalopathy No skin mottling Sepsis: Is patient septic: Yes Focused sepsis exam performed: Yes Date exam was performed: 11/16/22 Data 11/16/22 21:57 11/16/22 21:57 Micro: Microbiology 11/16/22 21:58 Blood Culture - Preliminary Blood SPECIMEN COLLECTED 11/16/22 21:57 Blood Culture - Preliminary Blood SPECIMEN COLLECTED A&P Assessment and plan (1) Acute cystitis: (2) Sepsis: (3) Cirrhosis: Qualifiers: Hepatic cirrhosis type: other cirrhosis Qualified Code(s): K74.69 - Other cirrhosis of liver Plan Sepsis related to UTI Criteria met with tachypnea tachycardia leukocytosis high lactic acid endorgan damage and fever Start ceftriaxone She had received septic bolus in the ER Requested blood culture, urine culture responsive to IV fluids for now I would avoid giving her more boluses because of history of liver cirrhosis she is at risk of third spacing Dehydration related hyponatremia and underlying liver cirrhosis I will start her on IV fluid, check TSH, osmolarity of urine and serum Type II diabetic Sliding scale along with long-acting insulin Chronic thrombocytopenia related to portal hypertension with underlying Britton related liver cirrhosis Chronic liver disease secondary to BRITTON: No acute decompensation check ammonia level Full code DVT prophylaxis on board with Eliquis Cardiac consistent carb diet Attestations Medical Necessity Statement*: Any more than 2 midnights for management of sepsis Time Spent in Patient Care: 40 Coding Level of Care Code Acute Yard Motor Operator for g Fwd Diagnoses Acute cystitis N30.00 Sepsis A41.9 Cirrhosis K74.69 Hepatic cirrhosis type: other cirrhosis
[2022-11-16] MEDS: sodium chloride 0.9% 500 ML 999 ML IV (23:10)
[2022-11-16 23:39] VITALS: BP 90/48; PULSE 95; RESP 23; O2SAT 94
[2022-11-16 23:58] LABS: Add Urine Microscopic? YES; Bilirubin Urine Neg (Negative); Blood Urine 3+ (Negative); Glucose Urine UA Norm (Normal); Ketones Urine 1+ (Negative); Leukocyte Esterase Urine 2+ (Negative); Nitrate Urine Negative (Negative); Protein Urine 2+ (Negative); Urine Appearance Cloudy (CLEAR); Urine Color Yellow (Yellow); Urobilinogen Urine 1 mg/dL (Negative); pH Urine 6 (5-7)
[2022-11-16 23:59] LABS: Add Urine Culture? Yes; Bacteria Urine 3+ /hpf; RBC Urine TOO NUMEROUS TO CNT /hpf (0-2); Squamous Epithelial Cell Urine 0-4 /hpf (0-5); WBC Urine TOO NUMEROUS TO CNT /hpf (0-5)
[2022-11-17] VITALS: PULSE 92
[2022-11-17 00:01] VITALS: BMI 32.0
[2022-11-17 00:05] LABS: Procalcitonin 19.06 ng/mL (0-0.5)
[2022-11-17 00:29] LABS: Lactate (Lactic Acid level) 2.4 mmol/L (0.5-2.2)
[2022-11-17 00:35] LABS: Glucose Point of Care 135 mg/dL (70-110)
[2022-11-17] MEDS: sodium chloride 0.9% 1,000 ML 75 ML IV (00:39)
[2022-11-17 01:27] LABS: Ammonia 41 umol/L (11-51)
[2022-11-17 01:47] LABS: Ferritin 104 ng/mL (15-150); Thyroid Stimulating Hormone 1.07 uIU/mL (0.27-4.20); Vitamin B12 503 pg/mL (232-1245)
[2022-11-17] MEDS: insulin glargine 100 units/1 mL 20 UNIT SUBCUT (06:23)
[2022-11-17 06:26] VITALS: PULSE 74
[2022-11-17 07:47] LABS: Glucose Point of Care 151 mg/dL (70-110)
[2022-11-17] MEDS: insulin lispro 100 unit/1 mL SUBCUT ×3 (08:20→17:22)
[2022-11-17] MEDS: apixaban 5 mg Tablet PO ×2 (08:20→17:22)
[2022-11-17] MEDS: tamsulosin 0.4 mg Capsule PO (08:21)
--- NOTE | 2022-11-17 08:29 | US_ITS ---
WS: [id number] Complete ABDOMINAL ULTRASOUND HISTORY: sepsis, assess for cholecystitis COMPARISON: 11/24/2021 Liver: 13.0 cm in length. Small echogenic liver with nodular surface. No bile duct dilatation. Portal Vein: Normal hepatopetal flow with monophasic waveform. Gallbladder: Not definitely identified. Gallbladder as per history has not been removed. Gallbladder was abnormal on a study of 11/24/2021. On several of the images there is a structure in the gallbladd er fossa which may be a contracted gallbladder with stones. Seen best on image 70. Pancreas: Partially visualized. The pancreas appears normal. CBD: 0.4 cm. Right kidney: 11.0 cm x 5.5 cm x 5.2 cm. No mass, cortical thickening or hydronephrosis. Left kidney: 10.9 cm x 5.3 cm x 5.6 cm. No mass, cortical thickening or hydronephrosis. Spleen: Normal size and echogenicity. Abdominal aorta and IVC are within normal limits. No ascites. Small RIGHT pleural effusion. US/US abdomen complete* [id number] IMPRESSION: 1. Gallbladder is not identified with certainty. There are few images of the g allbladder fossa which contain thick walled structure with shadowing. This is p robably the contracted gallbladder with stones. 2. Cirrhotic liver with no bile duct dilatation.
[2022-11-17 08:47] VITALS: PULSE 126; RESP 17; O2SAT 94
[2022-11-17 08:47] LABS: Hematocrit 36.3 % (37.0-47.0); Hemoglobin 10.8 g/dL (11.5-15.3); Mean Corpuscular HGB Conc 29.8 g/dL (30.0-36.0); Mean Platelet Volume 10.3 fL (7.4-10.4); Platelet Count 81 10^3/cmm (130-400); Red Blood Count 3.86 10^6/uL (4.1-5.3); White Blood Count 11.9 10^3/uL (4.0-10.0)
[2022-11-17 09:00] LABS: Anion Gap 15.4 (5-19); Blood Urea Nitrogen 23 mg/dL (8-23); Calcium 8.3 mg/dL (8.5-10.5); Carbon Dioxide 22 mmol/L (22-29); Chloride 98 mmol/L (98-107); Glomerular Filtration Rate 49.4 mL/min (90-130); Glucose 184 mg/dL (65-115); Magnesium 1.7 mg/dL (1.7-2.3); Osmolality Calculated 280 mOsm/kg (285-295); Potassium 4.4 mmol/L (3.5-5.1); Sodium 131 mmol/L (136-145)
[2022-11-17 09:11] LABS: Slide Review Slide Review Perform
[2022-11-17 09:12] LABS: Absolute Neutrophil 11.8 10^3/cmm (1.4-6.5); Absolute Segmented Neutrophil 9.8 10/cmm (1.6-7.1); Eosinophils 0 %; Lymphocytes 1 %; Lymphocytes Absolute 0.1 10^3/cmm (1.2-3.4); Platelet Estimate Decreased (Normal); Segmented Neutrophils 82 %; Total Cells Counted 100 (0-100)
[2022-11-17 09:13] LABS: Anisocytosis 2+; Burr Cells 3+; Giant Platelets 1+; Hypochromasia 2+; Macrocytosis 2+; Microcytosis 2+; Ovalocytes 2+; Poikilocytosis 2+; Polychromasia 2+; Spherocytes 2+; Target Cells Trace
[2022-11-17 09:14] LABS: Acanthocytes 2+; Schistocytes 2+
[2022-11-17 10:23] LABS: Reflex Lactate Order REFLEX LACTIC ORDERD
[2022-11-17 11:39] LABS: Glucose Point of Care 232 mg/dL (70-110)
[2022-11-17 11:58] LABS: Lactic Acid level (Lactate) 3.5 mmol/L (0.5-2.2)
--- NOTE | 2022-11-17 17:39 | PC.NURSE ---
Patient resting in room in bed with family bedside. Levophed off for the duration of this shift. Patients V/S are all WNL. Patient is alert and orientated.
[2022-11-17 17:44] LABS: Glucose Point of Care 168 mg/dL (70-110)
--- NOTE | 2022-11-17 17:58 | P.PN_ITS ---
Subjective Subjective: This morning she is feeling better. She denies any breathing difficulty or cough. Denies any abdominal pain or right upper quadrant discomfort. Reports chronic hyperbilirubinemia due to known liver cirrhosis. Vitals/I&O/Wt Last Vital Signs Temp 99.2 F 11/16/22 23:00 Pulse 126 H 11/17/22 08:47 Resp 17 11/17/22 08:47 BP 90/48 11/16/22 23:39 Pulse Ox 94 11/17/22 08:47 O2 Del Method 11/17/22 08:47 11/17/22 11/17/22 11/17/22 06:59 14:59 22:59 Intake Total 1999 / 2049 1290.833 / 8711.657 0059 / 2530.833 Output Total 600 / 600 Balance 1400 / 1450 1290.833 / 2029.901 5409 / 2530.833 Weight last 48 hrs Weight 81.964 kg Weight 78.471 kg Physical Exam Narrative: Daughter at her bedside. Const: COMMON NORMALS: patient oriented x3 and alert GENERAL APPEARANCE: cooperative ORIENTATION/CONSCIOUSNESS: Yes awake HENMT: COMMON NORMALS: oropharynx normal Neck/C-Spine: COMMON NORMALS: no JVD Resp: COMMON NORMALS: normal respiratory effort and clear to auscultation bilaterally AUSCULTATION: clear to auscultation bilaterally Cardio: COMMON NORMALS: no JVD, regular rhythm, S1 normal heart sound present, S2 normal heart sound present and No murmurs present (Cardio) RHYTHM: regular rhythm HEART SOUNDS: S1 normal heart sound present and S2 normal heart sound present GI: COMMON NORMALS: Normal to inspection, nondistended, normoactive bowel sounds present, Soft to palpation and non-tender PALPATION: Yes Soft to palpation Extremity: COMMON NORMALS: no joint enlargement and no pedal edema Neuro: COMMON NORMALS: patient oriented x3 and moves all extremities SENSORIUM/ORIENTATION: Yes alert Skin: COMMON NORMALS: no rashes or lesions noted GENERAL SKIN EXAM: no rashes or lesions noted Data 11/17/22 08:18 11/17/22 08:16 Micro: Microbiology 11/16/22 21:57 Blood Culture - Preliminary Blood 11/16/22 21:58 Blood Culture - Preliminary Blood A&P Assessment and plan (1) Acute cystitis: Complicated urinary tract infection with gram-negative jason sepsis, bacteremia. Continue empiric antibiotic coverage with ceftriaxone. Follow-up urine culture. Blood culture. Ultrasound obtained. No hydronephrosis. (2) Sepsis: Improving sepsis with septic shock with hypotension requiring pressors, this morning he is weaning off pressor. So far not requiring further for. Secondary to complicated urinary tract infection as above. (3) Cirrhosis: Known cirrhosis. T bili elevation, ultrasound obtained condyle but not identified with certainty,, possibly contracted gallbladder with stones partially visualized. Cirrhotic liver. No abdominal pain or discomfort. No right upper quadrant pain, Samano negative. Follows with hepatology. Qualifiers: Hepatic cirrhosis type: other cirrhosis Qualified Code(s): K74.69 - Other cirrhosis of liver Plan Dehydration related hyponatremia and underlying liver cirrhosis. Cautious hydration. Renal function is improving. Follow-up sodium, renal function. Volume status. LULU: Creatinine improving, from 1.3 down to 1.1. Receiving gentle IV fluid challenge. Follow-up renal function. Type II diabetic Sliding scale along with long-acting insulin Chronic thrombocytopenia related to portal hypertension with underlying Roberts related liver cirrhosis Chronic liver disease secondary to ROBERTS: No acute decompensation check ammonia level Full code DVT prophylaxis on board with Eliquis Cardiac consistent carb diet Attestations Medical Necessity Statement*: Continue admission for assessment of management of septic shock, sepsis, complicated UTI in a lady with Liver cirrhosis. Coding Level of Care Code Acute Loss Control Technician for [facility] Diagnoses Acute cystitis N30.00 Sepsis A41.9 Cirrhosis K74.69 Hepatic cirrhosis type: other cirrhosis
[2022-11-17] MEDS: cefTRIAXone 1,000 MG in sodium chloride 0.9% (plus) 50 ML 100 MG IV (21:08)
[2022-11-17 22:00] VITALS: PULSE 108
[2022-11-18] VITALS (92 sets, daily range): BP systolic 89–136; BP diastolic 42–67; PULSE 82–116; RESP 13–41; TEMP 37.6–37.8; O2SAT 86–95
[2022-11-18] MEDS: sodium chloride 0.9% 1,000 ML 75 ML IV ×2 (00:07→13:13)
[2022-11-18 03:16] LABS: Basophils % 0.3 %; Hematocrit 29.6 % (37.0-47.0); Hemoglobin 9.2 g/dL (11.5-15.3); Lymphocytes # 0.6 10^3/uL (0.8-4.8); Lymphocytes % 6.5 %; Mean Corpuscular HGB Conc 31.1 g/dL (30.0-36.0); Mean Corpuscular Hemoglobin 27.9 pg (28.0-34.0); Mean Corpuscular Volume 89.7 fl (81-99); Monocytes % 11.2 %; Neutrophils # 7.35 10^3/uL (1.8-7.7); Neutrophils % 81.3 %; Nucleated Red Blood Cells % 0 %; Platelet Count 76 10^3/cmm (130-400)
[2022-11-18 04:03] LABS: Alanine Aminotransferase 18 U/L (0-33); Albumin Level 2.2 g/dL (3.5-5.2); Alkaline Phosphatase 82 U/L (35-105); Aspartate Amino Transferase 32 U/L (0-32); Blood Urea Nitrogen 21 mg/dL (8-23); Calcium 8.1 mg/dL (8.5-10.5); Carbon Dioxide 22 mmol/L (22-29); Chloride 101 mmol/L (98-107); Globulin 3.4 g/dL (1.3-4.6); Glomerular Filtration Rate 55.1 mL/min (90-130); Glucose 117 mg/dL (65-115); Osmolality Calculated 278 mOsm/kg (285-295); Sodium 132 mmol/L (136-145); Total Bilirubin 1.5 mg/dL (0.15-1.2); Total Protein 5.6 g/dL (6.6-8.7)
[2022-11-18 04:04] LABS: Anion Gap 13.3 (5-19); Potassium 4.3 mmol/L (3.5-5.1)
[2022-11-18] MEDS: insulin glargine 100 units/1 mL 20 UNIT SUBCUT (06:26)
[2022-11-18 07:43] LABS: Glucose Point of Care 111 mg/dL (70-110)
[2022-11-18] MEDS: tamsulosin 0.4 mg Capsule PO (08:58)
[2022-11-18] MEDS: apixaban 5 mg Tablet PO ×2 (08:58→17:30)
--- NOTE | 2022-11-18 10:50 | PC.CHAP ---
Pastoral Care Encounter/Spiritual Assessment Type of Contact [] Declined regional cra visit [] Patient/Family/Request visit [] Outpatient visit [] Follow-up visit [] Physician referral [] Code/Alert [x] Routine visit [] Staff referral [] Actively dying [] Patient sleeping [] Family support [] [] Out of room [] Palliative care [] [] Receiving care in room [] Pre-surgical visit [] Trauma [] Long length of stay [x] ICU visit [] Other: Relational/Emotional Strength [] Patient feels connected with others/family/visitors/staff [] Distress [] Loneliness/isolation [] Abandonment Spirituality of Patient [] Person of Janette [] Attends Mormon of their Janette [] Believes in Prayer [] Reads Bible or Jewish materials [] There are Spiritual issues to be addressed Financial Examiner Interventions [x] Prayer [] Active listening [] Non-anxious presence [] Spiritual/emotional support [] Crisis/trauma care [] Spiritual counseling [] Bereavement support [] Provided bereavement packet [] Provided Bible/devotional materials [] Provided toy/stuffed animal, coloring book to patient or family member [] Provided Communion [] Anointing/[place] [] Salvation [x] Completed spiritual assessment [] Other: Impact on Illness or Injury [] Angry [] Fearful [] Anxious [] Often cries [] Exhaustion [] Unable to work [] Unable to attend presybeterian [] Unable to walk/stand [] Unable to read [] Unable to drive [] Unable to eat/drink [] Unable to sleep [] Unable to be with family [] Patient intubated [] Other: Summary Time spent with patient
[2022-11-18 11:26] LABS: Glucose Point of Care 198 mg/dL (70-110)
[2022-11-18 15:31] LABS: Osmolality Urine 127 mOsm/kg (50-1200)
[2022-11-18 15:31] LABS: Osmolality Serum 273 mOsm/kg (278-305)
[2022-11-18 17:26] LABS: Glucose Point of Care 147 mg/dL (70-110)
[2022-11-18] MEDS: insulin lispro 100 unit/1 mL SUBCUT (17:30)
--- NOTE | 2022-11-18 19:14 | P.PN_ITS ---
Subjective Subjective: Today she is feeling better. Overnight she again required pressor support, however, this morning and creatinine blood pressure doing better. She denies abdominal pain. No nausea or vomiting. Discussed with her results of abdominal ultrasound. Vitals/I&O/Wt Last Vital Signs Temp 99.2 F 11/16/22 23:00 Pulse 99 11/18/22 18:30 Resp 27 H 11/18/22 18:30 BP 102/54 11/18/22 17:45 Pulse Ox 89 L 11/18/22 18:30 O2 Del Method 11/18/22 07:35 11/18/22 11/18/22 11/18/22 06:59 14:59 22:59 Intake Total 43.815 / 2624.648 1596.256 / 1596.256 Output Total 750 / 1350 300 / 300 Balance -706.185 / 8773.825 3769.256 / 1296.256 Weight last 48 hrs Weight 81.964 kg Weight 78.471 kg Physical Exam 2 Narrative: Daughter at her bedside. Const: COMMON NORMALS: patient oriented x3 and alert GENERAL APPEARANCE: cooperative ORIENTATION/CONSCIOUSNESS: Yes awake HENMT: COMMON NORMALS: oropharynx normal Neck/C-Spine: COMMON NORMALS: no JVD Resp: COMMON NORMALS: normal respiratory effort and clear to auscultation bilaterally AUSCULTATION: clear to auscultation bilaterally Cardio: COMMON NORMALS: no JVD, regular rhythm, S1 normal heart sound present, S2 normal heart sound present and No murmurs present (Cardio) RHYTHM: regular rhythm HEART SOUNDS: S1 normal heart sound present and S2 normal heart sound present GI: COMMON NORMALS: Normal to inspection, nondistended, normoactive bowel soun ds present, Soft to palpation and non-tender PALPATION: Yes Soft to palpation OTHER: Samano negative Extremity: COMMON NORMALS: no joint enlargement and no pedal edema Neuro: COMMON NORMALS: patient oriented x3 and moves all extremities SENSORIUM/ORIENTATION: Yes alert Skin: COMMON NORMALS: no rashes or lesions noted GENERAL SKIN EXAM: no rashes or lesions noted Data 11/18/22 02:24 11/18/22 02:24 Micro: Microbiology 11/16/22 22:50 Urine Culture - Preliminary Urine,Clean Catch 11/16/22 21:58 Blood Culture - Preliminary Blood Escherichia coli 11/16/22 21:57 Blood Culture - Preliminary Blood A&P Assessment and plan (1) Acute cystitis: Organism coming back as E. coli. Previously pansensitive E. coli. Recommendation is gradually improving. Continue ceftriaxone for now. Follow-up sensitivities. Complicated urinary tract infection with gram-negative jason sepsis, bacteremia. Ultrasound obtained. No hydronephrosis. (2) Sepsis: Improving. Blood pressure last night soft required additional pressor support. Weaned off this morning. Maintain blood pressures through the day, low-salt. We will hold tamsulosin. Otherwise may continue care on medical floor. Secondary to complicated urinary tract infection as above. (3) Cirrhosis: Known cirrhosis. T bili elevation, ultrasound obtained condyle but not identified with certainty,, possibly contracted gallbladder with stones partially visualized. Cirrhotic liver. No abdominal pain or discomfort. No right upper quadrant pain, Samano negative. Follows with hepatology. Qualifiers: Hepatic cirrhosis type: other cirrhosis Qualified Code(s): K74.69 - Other cirrhosis of liver Plan Dehydration related hyponatremia and underlying liver cirrhosis. Cautious hydration. Renal function is improving. Follow-up sodium, renal function. Volume status. LULU: C resolving. Hold further IV fluid for now. Follow-up renal function. Type II diabetic Sliding scale along with long-acting insulin Chronic thrombocytopenia related to portal hypertension with underlying Roberts related liver cirrhosis Chronic liver disease secondary to ROBERTS: No acute decompensation check ammonia level Full code DVT prophylaxis on board with Eliquis Cardiac consistent carb diet Attestations Medical Necessity Statement*: Continue admission for assessment and management of improving sepsis, complicated urinary tract infection with gram-negative jason sepsis and bacteremia. 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
[2022-11-18] MEDS: oxyCODONE 5 mg IR Tab/Cap PO (21:13)
[2022-11-18] MEDS: cefTRIAXone 1,000 MG in sodium chloride 0.9% (plus) 50 ML 100 MG IV (21:13)
[2022-11-18 21:24] LABS: Glucose Point of Care 133 mg/dL (70-110)
[2022-11-19] VITALS (27 sets, daily range): BP systolic 100–188; BP diastolic 52–72; PULSE 80–107; RESP 14–29; TEMP 36.8–38.4; O2SAT 89–97
[2022-11-19 03:43] LABS: Basophils % 0.3 %; Eosinophils % 0.4 %; Hematocrit 27.2 % (37.0-47.0); Hemoglobin 8.4 g/dL (11.5-15.3); Lymphocytes # 0.7 10^3/uL (0.8-4.8); Lymphocytes % 10.3 %; Mean Corpuscular HGB Conc 30.9 g/dL (30.0-36.0); Mean Corpuscular Hemoglobin 27.9 pg (28.0-34.0); Mean Corpuscular Volume 90.4 fl (81-99); Mean Platelet Volume 11.4 fL (7.4-10.4); Monocytes # 1.1 10^3/uL (0.2-0.9); Monocytes % 16.9 %; Neutrophils # 4.73 10^3/uL (1.8-7.7); Neutrophils % 71.1 %; Nucleated Red Blood Cells % 0 %; Platelet Count 61 10^3/cmm (130-400); Red Blood Count 3.01 10^6/uL (4.1-5.3); Red Cell Distribution Width 18.3 % (12.1-15.1); White Blood Count 6.7 10^3/uL (4.0-10.0)
[2022-11-19 03:51] LABS: Alanine Aminotransferase 19 U/L (0-33); Albumin Level 2.3 g/dL (3.5-5.2); Alkaline Phosphatase 128 U/L (35-105); Anion Gap 11.1 (5-19); Aspartate Amino Transferase 37 U/L (0-32); Blood Urea Nitrogen 17 mg/dL (8-23); Calcium 8.1 mg/dL (8.5-10.5); Carbon Dioxide 22 mmol/L (22-29); Chloride 100 mmol/L (98-107); Globulin 3.1 g/dL (1.3-4.6); Glomerular Filtration Rate 62.3 mL/min (90-130); Glucose 138 mg/dL (65-115); Osmolality Calculated 272 mOsm/kg (285-295); Potassium 4.1 mmol/L (3.5-5.1); Sodium 129 mmol/L (136-145); Total Bilirubin 1.6 mg/dL (0.15-1.2); Total Protein 5.4 g/dL (6.6-8.7)
[2022-11-19] MEDS: insulin glargine 100 units/1 mL 20 UNIT SUBCUT (05:38)
[2022-11-19 05:45] LABS: Glucose Point of Care 115 mg/dL (70-110)
[2022-11-19 07:42] LABS: Glucose Point of Care 114 mg/dL (70-110)
[2022-11-19] MEDS: apixaban 5 mg Tablet PO ×2 (08:50→17:48)
[2022-11-19 12:05] LABS: Glucose Point of Care 199 mg/dL (70-110)
[2022-11-19] MEDS: insulin lispro 100 unit/1 mL SUBCUT ×2 (12:32→17:47)
[2022-11-19 17:41] LABS: Glucose Point of Care 164 mg/dL (70-110)
--- NOTE | 2022-11-19 18:02 | PC.NURSE ---
Report called to Charlene BAXTER, patient and belongings take to room 260-1.
--- NOTE | 2022-11-19 20:07 | P.PN_ITS ---
Subjective Subjective: She is overall feeling better. Denies any specific complaints. No additional issues overnight but did again have fever. No abdominal pain or discomfort. Vitals/I&O/Wt Last Vital Signs Temp 101.1 F H 11/19/22 19:21 Pulse 107 H 11/19/22 19:21 Resp 16 11/19/22 19:21 BP 108/63 11/19/22 19:21 Pulse Ox 90 11/19/22 19:21 O2 Del Method 11/19/22 19:21 O2 Flow Rate 2 11/19/22 10:07 11/19/22 11/19/22 11/19/22 06:59 14:59 22:59 Intake Total 100 / 1846.256 660 / 660 Output Total 750 / 750 Balance 100 / 1246.256 -90 / -90 Physical Exam Narrative: Accompanied by daughter at her bedside. Const: COMMON NORMALS: patient oriented x3 and alert GENERAL APPEARANCE: cooperative ORIENTATION/CONSCIOUSNESS: Yes awake HENMT: COMMON NORMALS: oropharynx normal Neck/C-Spine: COMMON NORMALS: no JVD Resp: COMMON NORMALS: normal respiratory effort and clear to auscultation bilaterally AUSCULTATION: clear to auscultation bilaterally Cardio: COMMON NORMALS: no JVD, regular rhythm, S1 normal heart sound present, S2 normal heart sound present and No murmurs present (Cardio) RHYTHM: regular rhythm HEART SOUNDS: S1 normal heart sound present and S2 normal heart sound present GI: COMMON NORMALS: Normal to inspection, nondistended, normoactive bowel sounds present, Soft to palpation and non-tender PALPATION: Yes Soft to palpation OTHER: Samano negative Extremity: COMMON NORMALS: no joint enlargement and no pedal edema Neuro: COMMON NORMALS: patient oriented x3 and moves all extremities SE NSORIUM/ORIENTATION: Yes alert Skin: COMMON NORMALS: no rashes or lesions noted GENERAL SKIN EXAM: no rashes or lesions noted Data 11/19/22 02:29 11/19/22 02:29 Micro: Microbiology 11/16/22 22:50 Urine Culture - Final Urine,Clean Catch A&P Assessment and plan (1) Sepsis: Still persist with tachycardia, fever 101 Fahrenheit. Gram-negative sepsis with E. coli bacteremia. Urine culture was unrevealing. Follow-up bacterial sensitivities. Continue Rocephin for now. Hypotension had so far resolved, today was hypertensive. Was resumed on Flomax. Continue care in medical floor. Secondary to complicated urinary tract infection as above. (2) Acute cystitis: Organism coming back as E. coli in blood culture. Urine culture unrevealing. Previously pansensitive E. coli in urine. As above. Complicated urinary tract infection with gram-negative jason sepsis, bacteremia. Ultrasound obtained. No hydronephrosis. (3) Cirrhosis: Known cirrhosis. T bili elevation with improvement, ultrasound obtained but not identified with certainty, possibly contracted gallbladder with stones partially visualized. Cirrhotic liver. No abdominal pain or discomfort. No right upper quadrant pain, Samano negative. Follows with hepatology. Qualifiers: Hepatic cirrhosis type: other cirrhosis Qualified Code(s): K74.69 - Other cirrhosis of liver Plan Dehydration related hyponatremia and underlying liver cirrhosis. Stopped IVF. Renal function is improving. Follow-up sodium, renal function. Volume status. LULU: Resolved. Follow-up renal function. Type II diabetic Sliding scale along with long-acting insulin Chronic thrombocytopenia related to portal hypertension with underlying Roberts related liver cirrhosis Chronic liver disease secondary to ROBERTS: No acute decompensation check ammonia level Full code DVT prophylaxis on board with Eliquis Cardiac consistent carb diet Attestations Medical Necessity Statement*: Continue admission for assessment and management of gram-negative sepsis. 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
[2022-11-19 20:39] LABS: Glucose Point of Care 155 mg/dL (70-110)
[2022-11-19] MEDS: cefTRIAXone 1,000 MG in sodium chloride 0.9% (plus) 50 ML 100 MG IV (22:33)
[2022-11-20] VITALS (8 sets, daily range): BP systolic 90–111; BP diastolic 48–68; PULSE 75–92; RESP 15–17; TEMP 36.6–36.9; O2SAT 92–98
[2022-11-20 04:52] LABS: Basophils # 0.1 10^3/uL (0.0-0.1); Basophils % 0.7 %; Eosinophils # 0.2 10^3/uL (0.0-0.8); Eosinophils % 2.1 %; Hematocrit 28.3 % (37.0-47.0); Hemoglobin 8.8 g/dL (11.5-15.3); Lymphocytes % 13.2 %; Mean Corpuscular HGB Conc 31.1 g/dL (30.0-36.0); Mean Corpuscular Hemoglobin 27.4 pg (28.0-34.0); Mean Corpuscular Volume 88.2 fl (81-99); Mean Platelet Volume 10.4 fL (7.4-10.4); Monocytes # 1.3 10^3/uL (0.2-0.9); Monocytes % 17.7 %; Neutrophils # 4.74 10^3/uL (1.8-7.7); Neutrophils % 65.3 %; Nucleated Red Blood Cells % 0 %; Platelet Count 71 10^3/cmm (130-400); Red Blood Count 3.21 10^6/uL (4.1-5.3); Red Cell Distribution Width 18.3 % (12.1-15.1); White Blood Count 7.3 10^3/uL (4.0-10.0)
[2022-11-20 05:11] LABS: Alanine Aminotransferase 21 U/L (0-33); Albumin Level 2.2 g/dL (3.5-5.2); Alkaline Phosphatase 139 U/L (35-105); Aspartate Amino Transferase 45 U/L (0-32); Blood Urea Nitrogen 13 mg/dL (8-23); Calcium 8.5 mg/dL (8.5-10.5); Carbon Dioxide 22 mmol/L (22-29); Chloride 101 mmol/L (98-107); Globulin 3.3 g/dL (1.3-4.6); Glomerular Filtration Rate 83.2 mL/min (90-130); Glucose 122 mg/dL (65-115); Osmolality Calculated 271 mOsm/kg (285-295); Sodium 130 mmol/L (136-145); Total Bilirubin 2.1 mg/dL (0.15-1.2); Total Protein 5.5 g/dL (6.6-8.7)
[2022-11-20 05:48] LABS: Slide Review Slide Review Perform
[2022-11-20] MEDS: insulin glargine 100 units/1 mL 20 UNIT SUBCUT (06:41)
[2022-11-20 06:43] LABS: Glucose Point of Care 122 mg/dL (70-110)
[2022-11-20] MEDS: apixaban 5 mg Tablet PO ×2 (09:28→16:56)
[2022-11-20] MEDS: tamsulosin 0.4 mg Capsule PO (09:28)
[2022-11-20 10:59] LABS: Glucose Point of Care 201 mg/dL (70-110)
[2022-11-20] MEDS: insulin lispro 100 unit/1 mL SUBCUT (12:43)
[2022-11-20 16:47] LABS: Glucose Point of Care 141 mg/dL (70-110)
--- NOTE | 2022-11-20 19:31 | PM.PN ---
Subjective Subjective: Reports today she is doing well. Last night while eating dinner she got colicky pain in her right upper quadrant. Briefly again this morning. Not currently. Bilirubin again noted elevated, 2.1. We discussed additional assessment by HIDA scan. Discussed results of blood culture, urine culture. She otherwise has no trouble breathing, no other new symptoms. Vitals/I&O/Wt Last Vital Signs Temp 98.2 F 11/20/22 15:02 Pulse 87 11/20/22 15:02 Resp 16 11/20/22 15:02 BP 93/60 11/20/22 15:02 Pulse Ox 95 11/20/22 15:02 O2 Del Method 11/20/22 15:02 O2 Flow Rate 2 11/19/22 10:07 11/20/22 11/20/22 11/20/22 06:59 14:59 22:59 Intake Total 50 / 710 480 / 480 240 / 720 Balance 50 / -240 480 / 480 240 / 720 Physical Exam Narrative: Accompanied by family at her bedside. Const: COMMON NORMALS: patient oriented x3 and alert GENERAL APPEARANCE: cooperative ORIENTATION/CONSCIOUSNESS: Yes awake HENMT: COMMON NORMALS: oropharynx normal Neck/C-Spine: COMMON NORMALS: no JVD Resp: COMMON NORMALS: normal respiratory effort and clear to auscultation bilaterally AUSCULTATION: clear to auscultation bilaterally Cardio: COMMON NORMALS: no JVD, regular rhythm, S1 normal heart sound present, S2 normal heart sound present and No murmurs present (Cardio) RHYTHM: regular rhythm HEART SOUNDS: S1 normal heart sound present and S2 normal heart sound present GI: COMMON NORMALS: Normal to inspection, nondistended, normoactive bowel sounds present, Soft to palpation and non-tender PALPATION: Yes Soft to palpation OTHER: Samano negative Extremity: COMMON NORMALS: no joint enlargement and no pedal edema Neuro: COMMON NORMALS: patient oriented x3 and moves all extremities SENSORIUM/ORIENTATION: Yes alert Skin: COMMON NORMALS: no rashes or lesions noted GENERAL SKIN EXAM: no rashes or lesions noted Data 11/20/22 04:00 11/20/22 04:00 Micro: Microbiology 11/16/22 21:58 Blood Culture - Final Blood Escherichia coli A&P Assessment and plan (1) Sepsis: Still persist with tachycardia, fever 101 Fahrenheit. Gram-negative sepsis with E. coli bacteremia. Urine culture was unrevealing. Some chronic pain in right upper quadrant with food. Hepatobiliary ultrasound was not particularly helpful. Assess HIDA scan. Continue Rocephin. (2) Acute cystitis: Organism coming back as E. coli in blood culture. Definitely suspected based on urinalysis, although urine culture unrevealing. Previously pansensitive E. coli in urine. As above. Complicated urinary tract infection with gram-negative jason sepsis, bacteremia. Ultrasound obtained. No hydronephrosis. (3) Cirrhosis: Known cirrhosis. T bili elevation. Ultrasound obtained but not identified with certainty, possibly contracted gallbladder with stones partially visualized. Cirrhotic liver. Follows with hepatology. Qualifiers: Hepatic cirrhosis type: other cirrhosis Qualified Code(s): K74.69 - Other cirrhosis of liver Plan Dehydration related hyponatremia and underlying liver cirrhosis. Will change to regular diet. LULU: Resolved. Follow-up renal function. Type II diabetic Sliding scale along with long-acting insulin Chronic thrombocytopenia related to portal hypertension with underlying Roberts related liver cirrhosis Chronic liver disease secondary to ROBERTS: No acute decompensation check ammonia level Full code DVT prophylaxis on board with Eliquis Cardiac consistent carb diet Attestations Medical Necessity Statement*: Continue admission for cyst management following gram-negative sepsis, assessment of additional potential sources. 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
[2022-11-20] MEDS: cefTRIAXone 1,000 MG in sodium chloride 0.9% (plus) 50 ML 100 MG IV (22:26)
[2022-11-20 22:40] LABS: Glucose Point of Care 187 mg/dL (70-110)
[2022-11-21] VITALS: BP 99/61; PULSE 83; RESP 17; TEMP 36.6; O2SAT 95
[2022-11-21 04:00] VITALS: BP 92/58; PULSE 84; RESP 17; TEMP 36.4; O2SAT 94
[2022-11-21 05:21] LABS: Basophils % 0.6 %; Eosinophils # 0.2 10^3/uL (0.0-0.8); Eosinophils % 2.7 %; Hematocrit 26.7 % (37.0-47.0); Hemoglobin 8.6 g/dL (11.5-15.3); Lymphocytes # 1.1 10^3/uL (0.8-4.8); Lymphocytes % 18.1 %; Mean Corpuscular HGB Conc 32.2 g/dL (30.0-36.0); Mean Corpuscular Hemoglobin 27.7 pg (28.0-34.0); Mean Corpuscular Volume 86.1 fl (81-99); Mean Platelet Volume 11.3 fL (7.4-10.4); Monocytes # 0.8 10^3/uL (0.2-0.9); Monocytes % 12.8 %; Neutrophils # 4.05 10^3/uL (1.8-7.7); Nucleated Red Blood Cells % 0 %; Platelet Count 80 10^3/cmm (130-400); Red Cell Distribution Width 18.4 % (12.1-15.1); White Blood Count 6.2 10^3/uL (4.0-10.0)
[2022-11-21 05:43] LABS: Alanine Aminotransferase 26 U/L (0-33); Albumin Level 2.3 g/dL (3.5-5.2); Alkaline Phosphatase 113 U/L (35-105); Anion Gap 10.9 (5-19); Aspartate Amino Transferase 48 U/L (0-32); Blood Urea Nitrogen 14 mg/dL (8-23); Calcium 8.7 mg/dL (8.5-10.5); Carbon Dioxide 21 mmol/L (22-29); Chloride 106 mmol/L (98-107); Globulin 3.1 g/dL (1.3-4.6); Glomerular Filtration Rate 99.4 mL/min (90-130); Glucose 149 mg/dL (65-115); Osmolality Calculated 281 mOsm/kg (285-295); Potassium 3.9 mmol/L (3.5-5.1); Sodium 134 mmol/L (136-145); Total Bilirubin 1.6 mg/dL (0.15-1.2); Total Protein 5.4 g/dL (6.6-8.7)
[2022-11-21 05:56] LABS: Slide Review Slide Review Perform
[2022-11-21 06:00] VITALS: PULSE 63
[2022-11-21] MEDS: insulin glargine 100 units/1 mL 20 UNIT SUBCUT (06:03)
[2022-11-21 08:00] VITALS: PULSE 63; RESP 16; O2SAT 94
[2022-11-21] MEDS: apixaban 5 mg Tablet PO (10:30)
[2022-11-21] MEDS: tamsulosin 0.4 mg Capsule PO (10:30)
--- NOTE | 2022-11-21 10:41 | P.DS_ITS ---
Discharge Providers Date of Admission: 11/16/22 23:17 Date of Discharge: November 21, 2022 Attending Provider at Admission: Barbara Bush MD Attending Provider at Discharge: Herbert Sinclair Primary Care Provider: Blaire Antonio DO Diagnoses at Discharge Discharge Diagnosis (1) Sepsis: Status: Acute (2) Acute cystitis: Status: Acute (3) Cirrhosis: Status: Chronic Qualifiers: Hepatic cirrhosis type: other cirrhosis Qualified Code(s): K74.69 - Other cirrhosis of liver Permanent problem details: britton Reason for Visit Reason for Visit: lethargic,fever Hospital Course Hospital Course Pleasant 66-year-old lady with liver cirrhosis secondary to Britton, chronic thrombocytopenia, DM2 with neuropathy, was admitted after presenting with fatigue, fever, on presentation and sepsis, septic shock, transiently required pressor support, treated with ceftriaxone for urinary tract infection, blood culture eventually growing E. coli with complicated gram-negative sepsis with bacteremia. Septic shock regularly resolved, weaned off pressor support, leukocytosis, fevers slowly subsided. Acute kidney injury on presentation resolved. Received IV hydration for dehydration. UA and presentation strongly suggestive of UTI, urine culture fortunately unrevealing. Assessment for additional sources due to hyperbilirubinemia, alk phos elevation, mild transaminitis, ultrasound poor quality, gallbladder not identified with certainty, thick-walled structure in gallbladder fossa suspected contracted gallbladder with stones. Cirrhotic liver, no bile duct dilation. Right upper quadrant colic on 1 occasion, additionally assessed by HIDA scan, without suggestion of cholecystitis. Follow-up regarding cholelithiasis. Subtle right basilar hazy opacity, less likely pneumonia given no respiratory symptoms. Please follow-up for resolution. Physical Exam Narrative: Up in chair, about to have breakfast. Reports she is feeling well. Ready to return home. Const: COMMON NORMALS: patient oriented x3 and alert GENERAL APPEARANCE: cooperative ORIENTATION/CONSCIOUSNESS: Yes awake HENMT: COMMON NORMALS: oropharynx normal Neck/C-Spine: COMMON NORMALS: no JVD Resp: COMMON NORMALS: normal respiratory effort and clear to auscultation bilaterally AUSCULTATION: clear to auscultation bilaterally Cardio: COMMON NORMALS: no JVD, regular rhythm, S1 normal heart sound present, S2 normal heart sound present and No murmurs present (Cardio) RHYTHM: regular rhythm HEART SOUNDS: S1 normal heart sound present and S2 normal heart sound present GI: COMMON NORMALS: Normal to inspection, nondistended, normoactive bowel sounds present, Soft to palpation and non-tender PALPATION: Yes Soft to palpation OTHER: Samano negative Extremity: COMMON NORMALS: no joint enlargement and no pedal edema Neuro: COMMON NORMALS: patient oriented x3 and moves all extremities SENSORIUM/ORIENTATION: Yes alert Skin: COMMON NORMALS: no rashes or lesions noted GENERAL SKIN EXAM: no ra shes or lesions noted Discharge Data Studies Completed and Pending Completed Studies During Hospitalization Category Date Time Status XR chest 1V portable [id number] Stat Exams 11/16/22 21:38 Completed NM hepatobiliary w phar* [id number] Stat Nuc Med 11/21/22 14:11 Completed US abdomen complete* [id number] Routine Ultrasound 11/17/22 08:29 Completed Pending at discharge Category Date Time Status Blood Culture Stat Lab 11/16/22 21:58 Results Complete Blood Count w/Auto AM LABS Lab 11/22/22 04:00 Ordered Complete Blood Count w/Auto AM LABS Lab 11/23/22 04:00 Ordered Comprehensive Metabolic Panel AM LABS Lab 11/22/22 04:00 Ordered Comprehensive Metabolic Panel AM LABS Lab 11/23/22 04:00 Ordered Radiology Impressions Chest X-Ray 11/16/22 21:38 IMPRESSION: Subtle right basilar hazy opacity. Atelectasis versus infiltrate Abdomen Ultrasound 11/17/22 08:29 IMPRESSION: 1. Gallbladder is not identified with certainty. There are few images of the gallbladder fossa which contain thick walled structure with shadowing. This is probably the contracted gallbladder with stones. 2. Cirrhotic liver with no bile duct dilatation. Hepatobiliary Scan Nuclear Medicine 11/21/22 14:11 IMPRESSION: Mildly delayed initial observed bones of biliary activity, normal peak activity timing. No evidence of acute cholecystitis. Normal gallbladder ejection fraction. Laboratory Results WBC 6.2 10^3/uL (4.0-10.0) 11/21/22 05:04 RBC 3.10 10^6/uL (4.1-5.3) L 11/21/22 05:04 Hgb 8.6 g/dL (11.5-15.3) L 11/21/22 05:04 Hct 26.7 % (37.0-47.0) L 11/21/22 05:04 MCV 86.1 fl (81-99) 11/21/22 05:04 MCH 27.7 pg (28.0-34.0) L 11/21/22 05:04 MCHC 32.2 g/dL (30.0-36.0) 11/21/22 05:04 RDW 18.4 % (12.1-15.1) H 11/21/22 05:04 Plt Count 80 10^3/cmm (130-400) L 11/21/22 05:04 MPV 11.3 fL (7.4-10.4) H 11/21/22 05:04 Neut % (Auto) 65.0 % 11/21/22 05:04 Lymph % (Auto) 18.1 % 11/21/22 05:04 Ramsey % (Auto) 12.8 % 11/21/22 05:04 Eos % (Auto) 2.7 % 11/21/22 05:04 Baso % (Auto) 0.6 % 11/21/22 05:04 Neut # (Auto) 4.05 10^3/uL (1.8-7.7) 11/21/22 05:04 Lymph # (Auto) 1.1 10^3/uL (0.8-4.8) 11/21/22 05:04 Ramsey # (Auto) 0.8 10^3/uL (0.2-0.9) 11/21/22 05:04 Eos # (Auto) 0.2 10^3/uL (0.0-0.8) 11/21/22 05:04 Baso # (Auto) 0.0 10^3/uL (0.0-0.1) 11/21/22 05:04 Nucleated RBC % (auto) 0 % 11/21/22 05:04 Total Counted 100 (0-100) 11/17/22 08:18 Atypical Lymphs % 0.0 % (0-5) 11/17/22 08:18 Absolute Neutrophils 11.8 10^3/cmm (1.4-6.5) H 11/17/22 08:18 Segmented Neutrophils 82 % 11/17/22 08:18 Abs Segm Neuts (Man) 9.8 10/cmm (1.6-7.1) H 11/17/22 08:18 Band Neutrophils 17.0 % 11/17/22 08:18 Abs Band Neuts (Man) 2.0 10^3/cmm (0.0-1.2) H 11/17/22 08:18 Absolute Lymphocytes 0.1 10^3/cmm (1.2-3.4) L 11/17/22 08:18 Lymphocytes (Manual) 1 % 11/17/22 08:18 Monocytes (Manual) 0.0 % 11/17/22 08:18 Absolute Monocytes 0.0 10^3/cmm (0.1-0.6) L 11/17/22 08:18 Eosinophils (Manual) 0 % 11/17/22 08:18 Absolute Eosinophils 0.0 10^3/cmm (0.0-0.7) 11/17/22 08:18 Basophils (Manual) 0.0 % 11/17/22 08:18 Absolute Basophils 0.0 10^3/cmm (0.0-0.2) 11/17/22 08:18 Nucleated RBCs # 0.0 /100WBC 11/21/22 05:04 Platelet Estimate Decreased (Normal) L 11/17/22 08:18 Giant Platelets 1+ H 11/17/22 08:18 Polychromasia 2+ H 11/17/22 08:18 Hypochromasia 2+ H 11/17/22 08:18 Poikilocytosis 2+ H 11/17/22 08:18 Anisocytosis 2+ H 11/17/22 08:18 Microcytosis 2+ H 11/17/22 08:18 Macrocytosis 2+ H 11/17/22 08:18 Spherocytes 2+ 11/17/22 08:18 Target Cells Trace 11/17/22 08:18 Ovalocytes 2+ H 11/17/22 08:18 Safia Cells 3+ H 11/17/22 08:18 Acanthocytes (Spur) 2+ H 11/17/22 08:18 Schistocytes 2+ H 11/17/22 08:18 PT 27.50 SECONDS (12.1-14.9) H 11/16/22 21:57 INR 2.53 (0.8-1.2) H 11/16/22 21:57 Sodium 134 mmol/L (136-145) L 11/21/22 05:04 Potassium 3.9 mmol/L (3.5-5.1) 11/21/22 05:04 Chloride 106 mmol/L (98-107) 11/21/22 05:04 Carbon Dioxide 21 mmol/L (22-29) L 11/21/22 05:04 Anion Gap 10.9 (5-19) 11/21/22 05:04 BUN 14 mg/dL (8-23) 11/21/22 05:04 Creatinine 0.6 mg/dL (0.5-0.9) 11/21/22 05:04 GFR Calculation 99.4 mL/min (90-130) 11/21/22 05:04 Glucose 149 mg/dL (65-115) H 11/21/22 05:04 POC Glucose 187 mg/dL (70-110) H 11/20/22 21:40 Serum Osmolality 273 mOsm/kg (278-305) L 11/17/22 00:35 Calculated Osmolality 281 mOsm/kg (285-295) L 11/21/22 05:04 Lactic Acid 5.0 mmol/L (0.5-2.2) H* 11/17/22 08:18 Lactic Acid (Sepsis) 3.5 mmol/L (0.5-2.2) H 11/17/22 11:30 Lactate 2.4 mmol/L (0.5-2.2) H 11/16/22 23:30 Calcium 8.7 mg/dL (8.5-10.5) 11/21/22 05:04 Phosphorus 2.0 mg/dL (2.5-4.5) L 11/17/22 08:16 Magnesium 1.7 mg/dL (1.7-2.3) 11/17/22 08:16 Ferritin 104 ng/mL (15-150) 11/17/22 00:35 Total Bilirubin 1.6 mg/dL (0.15-1.2) H 11/21/22 05:04 AST 48 U/L (0-32) H 11/21/22 05:04 ALT 26 U/L (0-33) 11/21/22 05:04 Alkaline Phosphatase 113 U/L (35-105) H 11/21/22 05:04 Ammonia 41 umol/L (11-51) 11/17/22 00:35 C-Reactive Protein 166.0 mg/L (0.0-4.9) H 11/17/22 08:16 Total Protein 5.4 g/dL (6.6-8.7) L 11/21/22 05:04 Albumin 2.3 g/dL (3.5-5.2) L 11/21/22 05:04 Globulin 3.1 g/dL (1.3-4.6) 11/21/22 05:04 Vitamin B12 503 pg/mL (232-1245) 11/17/22 00:35 Procalcitonin 19.06 ng/mL (0-0.5) H 11/16/22 21:57 TSH 1.07 uIU/mL (0.27-4.20) 11/17/22 00:35 Random Cortisol 35.70 ug/dL (2.47-19.5) H 11/17/22 08:16 Urine Color Yellow (Yellow) 11/16/22 22:50 Urine Appearance Cloudy (CLEAR) A 11/16/22 22:50 Urine pH 6 (5-7) 11/16/22 22:50 Ur Specific [place] 1.010 (1.005-1.030) 11/16/22 22:50 Urine Protein 2+ (Negative) H 11/16/22 22:50 Urine Glucose (UA) Norm (Normal) 11/16/22 22:50 Urine Ketones 1+ (Negative) H 11/16/22 22:50 Urine Blood 3+ (Negative) H 11/16/22 22:50 Urine Nitrate Negative (Negative) 11/16/22 22:50 Urine Bilirubin Neg (Negative) 11/16/22 22:50 Urine Urobilinogen 1 mg/dL (Negative) H 11/16/22 22:50 Ur Leukocyte Esterase 2+ (Negative) H 11/16/22 22:50 Urine RBC Too numerous to cnt /hpf (0-2) H 11/16/22 22:50 Urine WBC Too numerous to cnt /hpf (0-5) H 11/16/22 22:50 Ur Squamous Epith Cells 0-4 /hpf (0-5) H 11/16/22 22:50 Amorphous Sediment Not Reportable 11/16/22 22:50 Urine Bacteria 3+ /hpf (NONE) H 11/16/22 22:50 Urine Osmolality 127 mOsm/kg (50-1200) 11/17/22 03:30 Influenza Type A Ag negative (Negative) 11/16/22 21:50 Influenza Type B Ag negative (Negative) 11/16/22 21:50 Vitals Last Vital Signs Temp 97.6 F 11/21/22 04:00 Pulse 63 11/21/22 08:00 Resp 16 11/21/22 08:00 BP 92/58 11/21/22 04:00 Pulse Ox 94 11/21/22 08:00 O2 Del Method 11/21/22 08:00 O2 Flow Rate 2 11/19/22 10:07 Discharge Plan Discharge Patient Disposition: Home Condition: Stable Prescriptions: New cefdinir 300 mg capsule 300 mg PO BID 5 Days Qty: 10 0RF Continued calcium carbonate [Calcium 500] 500 mg calcium (1,250 mg) tablet,chewable 500 mg PO DAILY cholecalciferol (vitamin D3) 25 mcg (1,000 unit) capsule 25 mcg PO DAILY duloxetine 30 mg capsule,delayed release(DR/EC) 30 mg PO QAM 90 Days Qty: 90 1RF nitrofurantoin monohyd/m-cryst [Macrobid] 100 mg capsule 100 mg PO BID Qty: 20 0RF Rx Instructions: must administer with a meal/food Lasix 20 mg tablet 40 mg PO QAM (DME) pen needle, diabetic [Comfort EZ Pen [place]] 33 gauge x 5/32 needle See Rx Instructions .Route Qty: 100 3RF Rx Instructions: As directed alendronate [Fosamax] 70 mg tablet 70 mg PO .weekly Qty: 14 3RF Rx Instructions: Take one tablet by mouth weekly. On Ozempic 1 mg/dose (4 mg/3 mL) pen injector 1 mg SUBCUT Q7D 30 Days Qty: 3.75 0RF Rx Instructions: ON TUESDAY oxycodone 5 mg tablet 5 mg PO Q4H PRN (Reason: pain) 7 Days Qty: 42 0RF Eliquis 5 mg tablet 5 mg PO BID 90 Days Qty: 180 1RF acetaminophen 500 mg Tablet 1,000 mg PO Q4H PRN (Reason: Pain) Adult Multivitamin Gummies 200 mcg Tablet,Chewable 2 tab PO QAM atorvastatin 20 mg tablet 20 mg PO BEDTIME tamsulosin 0.4 mg capsule 0.4 mg PO DAILY ferrous sulfate 325 mg (65 mg iron) Tablet 325 mg PO QPM Changed Lantus Solostar U-100 Insulin 100 unit/mL (3 mL) insulin pen 20 unit SUBCUT QAM Qty: 15 0RF Discontinued spironolactone [Aldactone] 50 mg tablet 100 mg PO QAM Discharge Orders: Discharge Order (Routine); Ordered 11/21/22 Ordered By: Herbert Sinclair Referrals: Blaire Antonio, [Primary Care Provider] - 4-7 days Discharge Activity: Increase activity as tolerated Patient Instructions: Cefdinir (By mouth), Cirrhosis of the Liver (GEN), Gallstones (GEN), Acute Kidney Injury (GEN), Urinary Tract Infection in Women (GEN), Hypotension (GEN), Bacteremia (GEN), Opioid Safety Activity Restrictions/Additional Instructions: Follow-up with your primary doctor for reassessment after resolution of gram- negative sepsis, E. coli bacteremia, suspected secondary to complicated urinary tract infection. HIDA scan not suggestive of cholecystitis. Possible gallstones noted on ultrasound, please follow-up with your primary doctor. 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 Please have your primary doctor follow-up your kidney function for reassessment after resolution of acute kidney injury. Monitor blood pressures at home, your blood pressures have been soft. For now hold spironolactone so as not to decrease your blood pressures further. Follow- up with your primary doctor as to when it is safe to restart spironolactone. A requirement for insulin Lantus was 20 units in the hospital. This may be different at home. For now the dose was decreased, however, continue to monitor blood glucose at home and if needed increase Lantus dose by 2-3 units in a day in case blood glucose persistently remains above 150. Continue follow-up regarding chronic anemia and thrombocytopenia. Discharge Attestations Time Spent in Discharge Care*: greater than 30 min Quality Metrics Clinical Quality Measures [ No reported AMI, CVA or VTE this stay] Coding Level of Care Code Acute Chg FW DC note Diagnoses Sepsis A41.9 Acute cystitis N30.00 Cirrhosis K74.69 Hepatic cirrhosis type: other cirrhosis
[2022-11-21 11:29] LABS: Glucose Point of Care 245 mg/dL (70-110)
[2022-11-21 11:30] VITALS: BP 105/65; PULSE 73; RESP 16; TEMP 36.8; O2SAT 94
--- NOTE | 2022-11-21 14:11 | NMR_ITS ---
PROCEDURE INFORMATION: Exam: NM Hepatobiliary Including Gallbladder When Present With Pharmacological Intervention Exam date and time: 11/21/2022 2:11 PM Age: 66 years old Clinical indication: Patient HX: Ruq burning sensation x 1 year, diabetes; Additional info: Assess for cholecystitis TECHNIQUE: Imaging protocol: Hepatobiliary system imaging including the gallbladder when present with pharmacologic intervention. Including quantitative measurements when performed. Projections: Anterior abdomen. Radiopharmaceutical: 8.2 mCI Tc-99m Mebrofenin (Choletec, Bromotriethyl-ALBERTA), IV. Time of imaging post radiopharmaceutical administration: 60 minutes following radiopharmaceutical. Other contrast: 8 oz Ensure plus given; COMPARISON: CT chest abd pel w con* 08/28/2021 6:00 PM FINDINGS: Liver: Unremarkable. Homogeneous radiotracer uptake and clearance. Gallbladder: 1st visualized at 35 minutes. Gallbladder ejection fraction 51% at 53 minutes. Bile ducts: 1st visualized at 20 minutes. Peak activity between 40 and 50 minutes. Clearly visualized. Mildly relatively delayed hepatic to biliary transit time. Stomach and bowel: 1st visualized at 30 minutes. No evidence of significant enterogastric reflux. Radiotracer activity is seen in the small bowel. Normal biliary to bowel transit time. NM/NM hepatobiliary w phar* [id number] IMPRESSION: Mildly delayed initial observed bones of biliary activity, normal peak activity timing. No evidence of acute cholecystitis. Normal gallbladder ejection fraction.
== END 2022-11-21 12:51 | disposition home or self-care (01) | DRG 871 ==
LOC: ER 23:07 → ICU 23:18 → MEDSURG 11-19 18:13
PROVIDERS: Admitting Provider Internal Medicine; Emergency Provider Emergency Medicine; PCP Family Medicine; Visit Provider Internal Medicine
DX: A41.9 Sepsis, unspecified organism (principal); R65.21 Severe sepsis with septic shock; N30.00 Acute cystitis without hematuria; E87.1 Hypo-osmolality and hyponatremia; N17.9 Acute kidney failure, unspecified; K76.6 Portal hypertension; K75.81 Nonalcoholic steatohepatitis (NASH); K74.69 Other cirrhosis of liver; F41.8 Other specified anxiety disorders; M51.36 Other intervertebral disc degeneration, lumbar region; E11.42 Type 2 diabetes mellitus with diabetic polyneuropathy; E78.5 Hyperlipidemia, unspecified; I10 Essential (primary) hypertension; Z86.16 Personal history of COVID-19; G47.33 Obstructive sleep apnea (adult) (pediatric); I95.9 Hypotension, unspecified; E86.0 Dehydration; Z79.01 Long term (current) use of anticoagulants; Z79.4 Long term (current) use of insulin; Z79.891 Long term (current) use of opiate analgesic; D69.6 Thrombocytopenia, unspecified; B96.20 Unspecified Escherichia coli [E. coli] as the cause of diseases classified elsewhere
CPT/HCPCS: 36415; 36416; 71045; 76700; 78227; 80048; 80053; 81000; 81001; 82140; 82533; 82607; 82728; 82962; 83605; 83735; 83930; 83935; 84100; 84145; 84443; 85007; 85025; 85610; 86140; 87040; 87077; 87086; 87150; 87186; 87205; 87804; 96365; 96367; 96372; 99285; A9537; J0456; J0696; J1815; J7030; J7040; J7050; J7060; P9047

== ENCOUNTER → 2022-11-25 10:21 | Outpatient (BNVA) | payer MEDICARE, BC, SELFPAY | PROVIDERS: PCP Family Medicine; Visit Provider Family Medicine | DX: D64.9 Anemia, unspecified (principal); R60.0 Localized edema | CPT/HCPCS: 80048; 85025 ==

== ENCOUNTER → 2022-12-21 13:46 | Outpatient (BNVA) | payer MEDICARE, BC, SELFPAY | PROVIDERS: PCP Family Medicine; Visit Provider Internal Medicine Cardiovascular Disease | DX: I48.92 Unspecified atrial flutter (principal); Z79.01 Long term (current) use of anticoagulants; I10 Essential (primary) hypertension; Z79.4 Long term (current) use of insulin; E11.9 Type 2 diabetes mellitus without complications | CPT/HCPCS: 99214; Q3014 ==

== ENCOUNTER 2022-12-29 09:26 | Oncology outpatient (recurring) (ONCR) | payer MEDICARE, BC, SELFPAY | END 2023-01-25 23:59 | disposition home or self-care (01) | PROVIDERS: PCP Family Medicine; Visit Provider Internal Medicine Hematology & Oncology | DX: D69.6 Thrombocytopenia, unspecified (principal); K75.81 Nonalcoholic steatohepatitis (NASH); K74.60 Unspecified cirrhosis of liver; Z79.899 Other long term (current) drug therapy; Z86.16 Personal history of COVID-19 | CPT/HCPCS: 36415; 85025; 99214 ==

== ENCOUNTER → 2023-01-18 11:16 | Outpatient (BNVA) | payer MEDICARE, BC, SELFPAY | PROVIDERS: PCP Family Medicine; Visit Provider Internal Medicine | DX: E78.5 Hyperlipidemia, unspecified (principal); I10 Essential (primary) hypertension; E11.9 Type 2 diabetes mellitus without complications | CPT/HCPCS: 80053; 80061; 82043; 83036 ==

== ENCOUNTER → 2023-01-25 14:30 | Outpatient (BNVA) | payer MEDICARE, BC, SELFPAY | PROVIDERS: PCP Family Medicine; Visit Provider Internal Medicine | DX: E11.65 Type 2 diabetes mellitus with hyperglycemia (principal); E78.5 Hyperlipidemia, unspecified; M81.0 Age-related osteoporosis without current pathological fracture; Z79.4 Long term (current) use of insulin | CPT/HCPCS: 99214 ==

== ENCOUNTER 2023-03-31 09:28 | Outpatient (CLI) | payer MEDICARE, BC, SELFPAY ==
--- NOTE | 2023-03-31 10:37 | XR_ITS ---
WS: [id number] XR lumbar spine 2-3V* [id number] REASON FOR EXAM: right leg numbness FINDINGS: Moderate decrease in bone density. Straightening of the normal lordosis. Mild biconcave compression deformities L1-L5. Moderate disc space narrowing with significant anterior osteophyte formation L1-L4. Significant narro wing of the L4-L5 disc space with moderate endplate sclerosis and osteophytosis. The L5-S1 disc space appears autofused. Moderate degenerative facet joint changes L3-S1. No spondylolysis identified. 4 mm of anterolisthesis of L2 in relation to L1 and L3 in relation to L2. XR/XR lumbar spine 2-3V* [id number] IMPRESSION: Degenerative spondylosis as above.
== END 2023-03-31 09:29 | disposition home or self-care (01) ==
LOC: RAD 09:34
PROVIDERS: PCP Family Medicine; Visit Provider Family Medicine
DX: M47.896 Other spondylosis, lumbar region (principal); R20.0 Anesthesia of skin
CPT/HCPCS: 72100

== ENCOUNTER 2023-04-29 10:32 | Outpatient (CLI) | payer MEDICARE, BC, SELFPAY ==
--- NOTE | 2023-04-29 11:00 | MR_ITS ---
WS: [id number] MRI LUMBAR SPINE NONCONTRAST TECHNIQUE: Sagittal T1, T2 and STIR imaging. Axial T1 and T2 imaging. CLINICAL INFORMATION: Chronic low back pain COMPARISON: MRI 2014 FINDINGS: Mild lumbar curve. No acute compression. Disc bulging worse at L1-L3. L1-L2: Mild disc bulging with shallow central protrusion. Moderate central canal stenosis. Narrowing of the subarticular recess. Foramen are patent. L2-L3: Shallow central disc protrusion in combination with facet arthropathy and ligamentum flavum hy pertrophy results in moderate to severe central canal stenosis. Impingement traversing L3 nerve roots bilaterally. Mild to moderate facet arthropathy. Mild RIGHT greater than LEFT foraminal narrowing. L3-L4: Slight anterolisthesis. Disc osteophyte protrusion results in severe central canal stenosis. I mpingement traversing L4 nerve roots bilaterally. Moderate facet arthropathy. Moderate LEFT foraminal narrowing impinges the exiting LEFT L3 nerve root. RIGHT foramen is patent. L4-L5: Mild disc bulging with osteophytic ridging. Slight impingement RIGHT subarticular recess and t raversing RIGHT L5 nerve root. Moderate facet arthropathy. Moderate RIGHT and no significant LEFT for aminal narrowing. L5-S1: Mild disc bulging with slight contact of the traversing S1 nerve roots bilaterally. Mild facet arthropathy. Mild LEFT greater than RIGHT foraminal narrowing. Prior postoperative changes extensive pedicle screw fixation thoracic spine. Small disc protrusions i n the cervical spine at C5-C7. Visualized pelvic bony structures: Normal. Paravertebral soft tissues: Normal. 2.5 cm LEFT adrenal nodule likely adenoma. MR/MR lumbar spine wo con* [id number] IMPRESSION: Central canal stenosis has progressed at L1-L3 compared to previous described below. 1. Mild lumbar curve. No acute compression. 2. Moderate central canal stenosis L1-L2. Moderate to severe central canal martin nosis L2-L3 and severe central canal stenosis L3-L4 due to small disc protrusio ns. Impingement subarticular recess at these levels. 3. Evidence of prior hemilaminectomy L4-L5. 4. Moderate LEFT L3-L4 and RIGHT L4-L5 foraminal narrowing.
== END 2023-04-29 10:33 | disposition home or self-care (01) ==
LOC: RAD 10:35
PROVIDERS: PCP Family Medicine; Visit Provider Family Medicine
DX: M54.16 Radiculopathy, lumbar region (principal); G89.29 Other chronic pain; M48.061 Spinal stenosis, lumbar region without neurogenic claudication; M51.26 Other intervertebral disc displacement, lumbar region; Z98.890 Other specified postprocedural states
CPT/HCPCS: 72148

== ENCOUNTER 2023-05-04 08:08 | Outpatient (CLI) | payer MEDICARE, BC, SELFPAY ==
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
== END 2023-05-04 08:09 | disposition home or self-care (01) ==
PROVIDERS: PCP Family Medicine; Visit Provider Family Medicine
DX: N64.59 Other signs and symptoms in breast (principal)
CPT/HCPCS: 77062; G0279

== ENCOUNTER 2023-06-06 09:26 | Outpatient (CLI) | payer MEDICARE, BC, SELFPAY ==
--- NOTE | 2023-06-06 09:49 | US_ITS ---
WS: [id number] ULTRASOUND RIGHT BREAST HISTORY: Abnormal mammogram COMPARISON: 05/04/2023 TECHNIQUE: 2-D and Doppler. Patient has numerous peripherally calcified cysts within the anterior and lateral RIGHT breast. These are probably posttraumatic oil cysts. By ultrasound there are hypoechoic masses with mild through t ransmission. Calcifications in the wall of these low echogenic masses. No solid or suspicious mass. US/US breast RT limited* [id number] IMPRESSION: BI-RADS: 2-Benign FOLLOW-UP: 1 Year Follow-up
== END 2023-06-06 09:27 | disposition home or self-care (01) ==
PROVIDERS: PCP Family Medicine; Visit Provider Family Medicine
DX: R92.8 Other abnormal and inconclusive findings on diagnostic imaging of breast (principal)
CPT/HCPCS: 76642

== ENCOUNTER → 2023-06-22 12:44 | Outpatient (BNVA) | payer MEDICARE, BC, SELFPAY | PROVIDERS: PCP Family Medicine; Visit Provider Internal Medicine | DX: E11.65 Type 2 diabetes mellitus with hyperglycemia (principal); E78.5 Hyperlipidemia, unspecified; M81.0 Age-related osteoporosis without current pathological fracture; Z79.4 Long term (current) use of insulin | CPT/HCPCS: 99214 ==

== ENCOUNTER → 2023-07-14 09:35 | Outpatient (BNVA) | payer MEDICARE, BC, SELFPAY | PROVIDERS: PCP Family Medicine; Referring Provider Family Medicine; Visit Provider Anesthesiology Pain Medicine | DX: M54.16 Radiculopathy, lumbar region; G89.29 Other chronic pain; M48.062 Spinal stenosis, lumbar region with neurogenic claudication; M47.816 Spondylosis without myelopathy or radiculopathy, lumbar region | CPT/HCPCS: 99204 ==

== ENCOUNTER → 2023-07-27 14:45 | Outpatient (BNVA) | payer MEDICARE, BC, SELFPAY | PROVIDERS: PCP Family Medicine; Visit Provider Anesthesiology Pain Medicine | DX: M54.16 Radiculopathy, lumbar region (principal); M48.062 Spinal stenosis, lumbar region with neurogenic claudication | CPT/HCPCS: 64483; 64484; J1100; J3490 ==

== ENCOUNTER → 2023-08-10 13:39 | Outpatient (BNVA) | payer MEDICARE, BC, SELFPAY | PROVIDERS: PCP Family Medicine; Visit Provider Anesthesiology Pain Medicine | DX: M54.16 Radiculopathy, lumbar region (principal); M48.062 Spinal stenosis, lumbar region with neurogenic claudication | CPT/HCPCS: 64483; 64484; J1100; J3490 ==

== ENCOUNTER → 2023-08-17 13:05 | Outpatient (BNVA) | payer MEDICARE, BC, SELFPAY | PROVIDERS: PCP Family Medicine; Visit Provider Internal Medicine | DX: E11.9 Type 2 diabetes mellitus without complications (principal); Z79.899 Other long term (current) drug therapy | CPT/HCPCS: 80053; 80061; 82043; 83036 ==

== ENCOUNTER → 2023-08-25 11:12 | Outpatient (BNVA) | payer MEDICARE, BC, SELFPAY | PROVIDERS: PCP Family Medicine; Visit Provider Internal Medicine | DX: M81.0 Age-related osteoporosis without current pathological fracture (principal); E11.65 Type 2 diabetes mellitus with hyperglycemia; E78.5 Hyperlipidemia, unspecified; Z79.4 Long term (current) use of insulin | CPT/HCPCS: 99214 ==

== ENCOUNTER → 2023-08-29 08:57 | Outpatient (BNVA) | payer MEDICARE, BC, SELFPAY | PROVIDERS: PCP Family Medicine; Visit Provider Anesthesiology Pain Medicine | DX: M48.062 Spinal stenosis, lumbar region with neurogenic claudication (principal); M54.16 Radiculopathy, lumbar region; G89.29 Other chronic pain; M47.816 Spondylosis without myelopathy or radiculopathy, lumbar region | CPT/HCPCS: 99214 ==